=== PATIENT | male | born 1960 | race Caucasian/White ===

== ENCOUNTER → 2020-03-14 09:11 | Outpatient (BNVA) | payer OTHER, SELFPAY | PROVIDERS: Visit Provider Orthopaedic Surgery | DX: M17.0 Bilateral primary osteoarthritis of knee (principal) | CPT/HCPCS: 99213 ==

== ENCOUNTER → 2020-06-06 08:49 | Outpatient (BNVA) | payer OTHER, SELFPAY | PROVIDERS: Visit Provider Orthopaedic Surgery | DX: M17.11 Unilateral primary osteoarthritis, right knee (principal); M17.12 Unilateral primary osteoarthritis, left knee | CPT/HCPCS: 99212 ==

== ENCOUNTER → 2020-07-19 09:02 | Outpatient (BNVA) | payer OTHER, SELFPAY | PROVIDERS: Visit Provider Orthopaedic Surgery ==

== ENCOUNTER 2020-08-25 | Outpatient (REF) | payer OTHER, SELFPAY ==
[2020-08-25 10:43] LABS: Glucose Urine UA NEG (NEG); Leukocyte Esterase Urine NEG (NEG); Nitrite Urine NEG (NEG); Specific Gravity - Urine 1.015 (1.005-1.025); Urine Blood NEG (NEG); Urine Ketones NEG (NEG); Urine Protein NEG (NEG-TRACE)
[2020-08-25 10:44] LABS: Appearance Urine CLEAR; Color Urine YELLOW
[2020-08-25 10:45] LABS: Hemoglobin 15.5 g/dl (14.0-18.0); Mean Corpuscular Hemoglobin 28.4 pg (27.0-33.0); Mean Corpuscular Volume 86.2 fL (80-98); Mean Platelet Volume 9.8 fL (9.4-12.4); Platelet Count 307 X10*3/uL (160-400); Red Blood Count 5.45 X10*6/uL (4.60-5.80); Red Cell Distribution Width 12.9 % (11.0-16.0); White Blood Count 4.8 X10*3/uL (4.8-10.8)
[2020-08-25 10:55] LABS: RBC Urine 0-2 /HPF (0); WBC Urine 0-2 /HPF (0-4)
[2020-08-25 11:07] LABS: Alanine Aminotransferase 41 U/L (0-40); Albumin Level 4.5 g/dL (3.5-5.0); Alkaline Phosphatase 75 U/L (39-117); Anion Gap 10 (12-20); Aspartate Amino Transferase 37 U/L (5-37); Bilirubin Total 1.1 mg/dL (0.0-1.0); Blood Urea Nitrogen 16 mg/dL (9-16); Calcium 9.4 mg/dL (8.4-10.2); Carbon Dioxide 31 mmol/L (22-29); Chloride 103 mmol/L (96-108); Cholesterol 158 mg/dL; Estimated Glomerular Filt Rate > 60; Glucose Fasting 113 mg/dL (60-99); HDL Cholesterol 48 mg/dL; LDL Cholesterol Calculated 98 mg/dl; Potassium 5.2 mmol/L (3.3-5.1); Sodium 139 mmol/L (135-145); Total Protein 7.1 g/dL (6.5-8.0); Triglycerides 61 mg/dL
[2020-08-25 11:28] LABS: Prostate Specific Antigen Scr 0.42 ng/mL (<0.05-4.0)
== END 2020-08-25 00:01 | disposition home or self-care (01) ==
LOC: HO.LAB
PROVIDERS: Visit Provider Internal Medicine
DX: Z01.818 Encounter for other preprocedural examination (principal); I10 Essential (primary) hypertension; Z12.5 Encounter for screening for malignant neoplasm of prostate
CPT/HCPCS: 36415; 80053; 80061; 81001; 84153; 85027; 86850; 86900

== ENCOUNTER 2020-08-27 | Outpatient (REF) | payer OTHER, SELFPAY ==
--- NOTE | 2020-08-27 10:41 | P.CONAN_ITS ---
HPI - Anesthesia Eval Consult details Narrative: 60yo M for Bilateral Knee Replacement Total PCP cleared Pt rescheduled d/t recent dental infection/root canal PMFSH Active Problems Active Problems: All Active Problems (Updated 08/20/20 @ 13:38 by Kathe Edge MD) Primary osteoarthritis of left knee (Acute) Primary osteoarthritis of right knee (Acute) Annual physical exam (Acute) Hypertension (Acute) Normal colonoscopy (Acute) Past Medical History Medical History (Updated 08/27/20 @ 12:27 by Xi Stewart) Annual physical exam Arthritis COVID-19 vaccine administered GERD (gastroesophageal reflux disease) Herniated disc Hx of sciatica Hypertension Murmur Normal colonoscopy Palpitations Primary osteoarthritis of knees, bilateral Family History Family History (Updated 06/26/20 @ 08:59 by Lucina Jalloh RMStephen, BENZENE OPERATOR) Mother No problems noted. Father Stroke Family history of problems with anesthesia: No Surgical History Surgical History (Updated 08/27/20 @ 12:25 by Xi Stewart) H/O arthroscopic knee surgery H/O colonoscopy History of hand surgery History of Problems with Anesthesia: No Social History Social History (Updated 08/27/20 @ 13:26 by Xi Stewart) Smoking Status: Never smoker Current occupational status: employed Current occupation: [employer] - Right Handed Narrative Narrative: No recent illness. 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 Meds Allergies Allergy/AdvReac Type Severity Reaction Status Date / Time lisinopril AdvReac Intermediate cough Verified 08/24/20 08:11 Home Medications Medication Instructions Recorded Confirmed Last Taken Type amlodipine 10 mg tablet 10 mg PO DAILY 03/13/20 08/27/20 Unknown History diclofenac sodium 1 % gel topical 2 g TOPICAL QID PRN 03/13/20 08/27/20 Unknown History kit amoxicillin 875 mg-potassium 1 tab PO Q12H 08/20/20 Unknown History clavulanate 125 mg tablet aspirin 81 mg PO DAILY 08/27/20 08/27/20 08/26/20 History cholecalciferol (vitamin D3) 25 mcg PO BID 08/27/20 08/27/20 Unknown History [Vitamin D3] famotidine 20 mg PO BEDTIME 08/27/20 08/27/20 Unknown History multivitamin 1 tab PO DAILY 08/27/20 08/27/20 Unknown History Exam Exam Date and Time: August 27, 2020 1041 Pertinent Lab Results Pertinent Lab Results: Laboratory Tests 08/25/20 08/25/20 08/25/20 10:12 10:15 10:15 WBC 4.8 RBC 5.45 Hgb 15.5 Hct 47.0 MCV 86.2 MCH 28.4 MCHC 33.0 RDW 12.9 Plt Count 307 MPV 9.8 Absolute Nucleated RBC 0.000 Nucleated RBC % (auto) 0.0 Sodium 139 Potassium 5.2 H Chloride 103 Carbon Dioxide 31 H Anion Gap 10 L BUN 16 Creatinine 1.08 Estim Creat Clear Calc TNP Estimated GFR > 60 Fasting Glucose 113 H Calcium 9.4 Total Bilirubin 1.1 H AST 37 ALT 41 H Alkaline Phosphatase 75 Total Protein 7.1 Albumin 4.5 Triglycerides 61 Cholesterol 158 LDL Cholesterol, Calc 98 HDL Cholesterol 48 PSA Screen 0.42 Urine Color YELLOW Urine Appearance CLEAR Urine pH 7.0 Ur Specific [place] 1.015 Urine Protein NEG Urine Glucose (UA) NEG Urine Ketones NEG Urine Blood NEG Urine Nitrite NEG Ur Leukocyte Esterase NEG Urine RBC 0-2 Urine WBC 0-2 Ur Squamous Epith Cells NONE Urine Bacteria NONE Blood Type Antibody Screen 08/25/20 10:15 WBC RBC Hgb Hct MCV MCH MCHC RDW Plt Count MPV Absolute Nucleated RBC Nucleated RBC % (auto) Sodium Potassium Chloride Carbon Dioxide Anion Gap BUN Creatinine Estim Creat Clear Calc Estimated GFR Fasting Glucose Calcium Total Bilirubin AST ALT Alkaline Phosphatase Total Protein Albumin Triglycerides Cholesterol LDL Cholesterol, Calc HDL Cholesterol PSA Screen Urine Color Urine Appearance Urine pH Ur Specific [place] Urine Protein Urine Glucose (UA) Urine Ketones Urine Blood Urine Nitrite Ur Leukocyte Esterase Urine RBC Urine WBC Ur Squamous Epith Cells Urine Bacteria Blood Type O Positive Antibody Screen NEGATIVE Narrative Narrative: EKG 08/2020 Echo 03/2018 Normal biV function No signif valve pathology No pericard effusion Airway Mallampati Class: III TM Dist: >3cm Neck ROM: Full Partial: Upper and Lower Loose/Missing/Broken Teeth: Yes (Multiple broken, all stable) Heart: RRR Lungs: CTAB Assessment and Plan Assessment Anesthesia Assessment: Anesthesia Plan Discussed and PAT Visit
[2020-08-27 12:15] VITALS: BP 125/86; PULSE 110; RESP 18; O2SAT 97; BMI 31.6
--- NOTE | 2020-08-27 13:12 | ECG_ITS ---
Test Reason : PREOP Blood Pressure : / mmHG Vent. Rate : 081 BPM Atrial Rate : 081 BPM P-R Int : 192 ms QRS Dur : 086 ms QT Int : 378 ms P-R-T Axes : 048 028 044 degrees QTc Int : 439 ms Normal sinus rhythm Normal ECG No previous ECGs available Referred By: Corby Currie Electronically Signed By:KELLIE ANGELES MD
[2020-08-27 15:31] LABS: MRSA Nasal PCR NEGATIVE (Negative); SA Nasal PCR NEGATIVE (Negative)
== END 2020-08-27 00:01 | disposition home or self-care (01) ==
LOC: HO.PAT
PROVIDERS: Physician Assistant; PCP Internal Medicine; Visit Provider Orthopaedic Surgery
DX: Z01.818 Encounter for other preprocedural examination (principal); M17.0 Bilateral primary osteoarthritis of knee
CPT/HCPCS: 36415; 80053; 80061; 81001; 84153; 85027; 86850; 86900; 87640; 87641; 93005

== ENCOUNTER → 2020-10-31 13:49 | Outpatient (BNVA) | payer OTHER, SELFPAY | PROVIDERS: PCP Internal Medicine; Visit Provider Physician Assistant | DX: M17.0 Bilateral primary osteoarthritis of knee (principal) | CPT/HCPCS: 99212 ==

== ENCOUNTER → 2020-11-05 06:22 | Day surgery (SDC) | payer OTHER, SELFPAY ==
--- NOTE | 2020-10-31 14:59 | P.CONAN_ITS ---
HPI - Anesthesia Eval Consult details Narrative: 60yo M for Bilateral Knee Replacement Total PCP cleared Seen in PAT 08/2020, but pt rescheduled d/t dental infection/root canal 11/05/20 - Cx'd d/t wound on leg. PMFSH Active Problems Active Problems: All Active Problems (Updated 08/27/20 @ 12:27 by Xi Stewart) Primary osteoarthritis of left knee (Acute) Primary osteoarthritis of right knee (Acute) Annual physical exam (Acute) Hypertension (Acute) Normal colonoscopy (Acute) Past Medical History Medical History Annual physical exam Arthritis COVID-19 vaccine administered GERD (gastroesophageal reflux disease) Herniated disc Hx of sciatica Hypertension Murmur Normal colonoscopy Palpitations Primary osteoarthritis of knees, bilateral Family History Family History Mother No problems noted. Father Stroke Family history of problems with anesthesia: No Surgical History Surgical History H/O arthroscopic knee surgery H/O colonoscopy History of hand surgery History of Problems with Anesthesia: No Social History Social History Are you a primary physician assistant primary care to a significant other at home: No Do you presently have visiting nurse or other home services: No Patient Tobacco Use Status: Never used Tobacco Second Hand Smoke Exposure: No Use of substances other than those prescribed or required for medical reasons: No Are you DNR?: No Advance Directives: No Advance Directives Information Provided: No Advance Directives on File: No Nutrition Risks: No Nutritional Risk Poor oral hygiene: No Current occupational status: employed Current occupation: [employer] - Right Handed Meds Allergies Allergy/AdvReac Type Severity Reaction Status Date / Time lisinopril AdvReac Intermediate cough Verified 10/31/20 14:01 Home Medications Medication Instructions Recorded Confirmed Last Taken Type amlodipine 10 mg tablet 10 mg PO DAILY 03/13/20 08/27/20 11/05/20 History diclofenac sodium 1 % gel topical 2 g TOPICAL QID PRN 03/13/20 08/27/20 Unknown History kit amoxicillin 875 mg-potassium 1 tab PO Q12H 03/29/21 Unknown History clavulanate 125 mg tablet aspirin 81 mg PO DAILY 08/27/20 08/27/20 08/26/20 History cholecalciferol (vitamin D3) 25 mcg PO BID 08/27/20 08/27/20 Unknown History [Vitamin D3] famotidine 20 mg PO BEDTIME 08/27/20 08/27/20 Unknown History multivitamin 1 tab PO DAILY 08/27/20 08/27/20 11/05/20 History amoxicillin 500 mg capsule 1,000 mg PO BID 10/31/20 Unknown History ibuprofen 600 mg tablet 600 mg PO TID 10/31/20 Unknown History Exam Exam Date and Time: October 31, 2020 1459 Narrative Narrative: EKG 08/2020 Vent. Rate : 081 BPM Atrial Rate : 081 BPM P-R Int : 192 ms QRS Dur : 086 ms QT Int : 378 ms P-R-T Axes : 048 028 044 degrees QTc Int : 439 ms Normal sinus rhythm Normal ECG No previous ECGs available Echo 03/2018 Normal biV function No signif valve pathology No pericard effusion Assessment and Plan Assessment Anesthesia Assessment: Chart Reviewed
[2020-11-05 06:30] VITALS: BMI 31.6
[2020-11-05 06:43] VITALS: BP 147/79; PULSE 93; RESP 18; TEMP 36.9; O2SAT 97
[2020-11-05 06:53] LABS: COVID-19 Test Negative (Negative); IDNOW Serial# 9DD0AD1C
--- NOTE | 2020-11-05 07:49 | PC.NURSE ---
Pt with open abrasion to right lower [place]. Picture sent to Dr. Gallo via [employer]. Dr Gallo at bedside to assess finding. Pt to be cancelled for surgery today and rescheduled in a couple weeks when abrasion is healed.
== END ==
LOC: HO.SSS 07:05 → HO.SSSA 10:45 → HO.SSS 05-05 00:21
PROVIDERS: Physician Assistant; PCP Internal Medicine; Visit Provider Orthopaedic Surgery
DX: M17.0 Bilateral primary osteoarthritis of knee (principal); Z53.09 Procedure and treatment not carried out because of other contraindication; Z20.822 Contact with and (suspected) exposure to COVID-19; I10 Essential (primary) hypertension
CPT/HCPCS: 36415; 86850; 86900; 86901; 87635; J0690

== ENCOUNTER 2020-11-19 11:02 | Inpatient (IN) | payer OTHER, SELFPAY ==
[2020-11-16 11:14] LABS: MANUAL DIFF FLAG NO
[2020-11-16 11:29] LABS: Basophils Absolute Auto 0.1 X10*3/uL (0.0-0.2); Basophils Percent Auto 0.8 % (0-2); Eosinophils Absolute Auto 0.2 X10*3/uL (0.0-0.4); Eosinophils Percent Auto 2.9 % (0-4); Hematocrit 46.1 % (42-52); Hemoglobin 15.1 g/dl (14.0-18.0); Imm Gran Abs Auto 0.01 X10*3/uL (0.00-0.03); Imm Gran Pct Auto 0.2 % (0.0-0.4); Lymphocytes Absolute Auto 1.6 X10*3/uL (1.2-4.9); Lymphocytes Percent Auto 25.7 % (20-40); Mean Corpuscular HGB Conc 32.8 g/dl (31.0-36.0); Mean Corpuscular Hemoglobin 28.7 pg (27.0-33.0); Mean Corpuscular Volume 87.5 fL (80-98); Mean Platelet Volume 9.8 fL (9.4-12.4); Monocytes Absolute Auto 0.5 X10*3/uL (0.1-1.2); Monocytes Percent Auto 8.5 % (2-11); Neutrophils Absolute Auto 3.9 X10*3/uL (2.0-8.3); Neutrophils Percent Auto 61.9 % (45-73); Platelet Count 316 X10*3/uL (160-400); Red Blood Count 5.27 X10*6/uL (4.60-5.80); Red Cell Distribution Width 12.7 % (11.0-16.0); White Blood Count 6.2 X10*3/uL (4.8-10.8)
[2020-11-16 12:00] LABS: Anion Gap 12 (12-20); Blood Urea Nitrogen 12 mg/dL (9-16); Calcium 9.9 mg/dL (8.4-10.2); Carbon Dioxide 28 mmol/L (22-29); Chloride 103 mmol/L (96-108); Estimated Glomerular Filt Rate > 60; Glucose Random 102 mg/dL (60-115); Sodium 138 mmol/L (135-145)
[2020-11-19] VITALS (24 sets, daily range): BP systolic 102–140; BP diastolic 52–80; PULSE 78–95; RESP 10–18; TEMP 36.1–36.7; O2SAT 93–99; BMI 30.4
--- NOTE | ~2020-11-19 | XR_ITS ---
EXAMINATION: BILATERAL KNEE X-RAY CLINICAL INFORMATION: Postop COMPARISON: Previous x-ray June 2019 TECHNIQUE: 2 views of each knee FINDINGS: There are new bilateral 3 component total knee replacements. No fracture or dislocation is seen. There are postoperative changes to the soft tissues. XR/XR knee RT 2V IMPRESSION: Satisfactory appearance of bilateral knee replacements.
--- NOTE | ~2020-11-19 | XR_ITS ---
EXAMINATION: BILATERAL KNEE X-RAY CLINICAL INFORMATION: Postop COMPARISON: Previous x-ray June 2019 TECHNIQUE: 2 views of each knee FINDINGS: There are new bilateral 3 component total knee replacements. No fracture or dislocation is seen. There are postoperative changes to the soft tissues. XR/XR knee LT 2V IMPRESSION: Satisfactory appearance of bilateral knee replacements.
[2020-11-19 06:45] LABS: COVID-19 Test Negative (Negative)
[2020-11-19] MEDS: Gabapentin 600 MG TABLET PO (07:18)
--- NOTE | 2020-11-19 07:20 | HO.ANESPROP2 ---
HPI - Anesthesia Eval Consult details Narrative: 60 year old make patient for bilateral TKR. Procedure cancelled 11/06/20 secondary to abrasion on lower extremity. PMFSH Active Problems Active Problems: All Active Problems (Updated 08/27/20 @ 12:27 by Xi Stewart) Primary osteoarthritis of left knee (Acute) Primary osteoarthritis of right knee (Acute) Annual physical exam (Acute) Hypertension (Acute) Normal colonoscopy (Acute) Past Medical History Medical History Annual physical exam Arthritis COVID-19 vaccine administered GERD (gastroesophageal reflux disease) Herniated disc Hx of sciatica Hypertension Murmur Normal colonoscopy Palpitations Primary osteoarthritis of knees, bilateral Family History Family History Mother No problems noted. Father Stroke Family history of problems with anesthesia: No Surgical History Surgical History H/O arthroscopic knee surgery H/O colonoscopy History of hand surgery History of Problems with Anesthesia: No Social History Social History Are you a primary child care specialist to a significant other at home: No Do you presently have visiting nurse or other home services: No Patient Tobacco Use Status: Never used Tobacco Second Hand Smoke Exposure: No Use of substances other than those prescribed or required for medical reasons: No Are you DNR?: No Advance Directives: No Current occupational status: employed Current occupation: [employer] - Right [employer]ed Meds Allergies Allergy/AdvReac Type Severity Reaction Status Date / Time lisinopril AdvReac Intermediate cough Verified 11/19/20 06:14 Active Medications: Current Medications Generic Name Dose Route Start Last Admin Trade Name Freq PRN Reason Stop Dose Admin Gabapentin 600 mg 11/19/20 07:20 Gabapentin 600 Mg Tablet PO 11/19/20 07:21 PREOP ONE Acetaminophen 1,000 mg in 100 mls @ 400 mls/hr 11/19/20 07:19 Ofirmev IV 11/19/20 07:33 PREOP ONE Oxycodone HCl 10 mg 11/19/20 07:20 Oxycodone Hcl Er 10 Mg Tab.Er.12h PO 11/19/20 07:21 PREOP ONE Home Medications Medication Instructions Recorded Confirmed Last Taken Type amlodipine 10 mg tablet 10 mg PO DAILY 03/13/20 08/27/20 11/19/20 05:30 History diclofenac sodium 1 % gel topical 2 g TOPICAL QID PRN 03/13/20 08/27/20 Unknown History kit amoxicillin 875 mg-potassium 1 tab PO Q12H 08/20/20 Unknown History clavulanate 125 mg tablet aspirin 81 mg PO DAILY 08/27/20 08/27/20 11/12/20 History cholecalciferol (vitamin D3) 25 mcg PO BID 08/27/20 08/27/20 Unknown History [Vitamin D3] famotidine 20 mg PO BEDTIME 08/27/20 08/27/20 Unknown History multivitamin 1 tab PO DAILY 08/27/20 08/27/20 11/05/20 History amoxicillin 500 mg capsule 1,000 mg PO BID 10/31/20 Unknown History ibuprofen 600 mg tablet 600 mg PO TID 10/31/20 Unknown History Exam Exam Date and Time: November 19, 2020 0720 Height,Weight and Vital Signs: Height 6 ft 3 in Weight 110.223 kg Last Vital Signs Temp 98.0 F 11/19/20 06:39 Pulse 94 11/19/20 06:39 Resp 16 11/19/20 06:39 BP 140/76 H 11/19/20 06:39 Pulse Ox 96 11/19/20 06:39 Pertinent Lab Results Pertinent Lab Results: Laboratory Tests 11/16/20 11/16/20 11/16/20 10:37 10:37 10:37 WBC 6.2 RBC 5.27 Hgb 15.1 Hct 46.1 MCV 87.5 MCH 28.7 MCHC 32.8 RDW 12.7 Plt Count 316 MPV 9.8 Immature Gran % (Auto) 0.2 Neut % (Auto) 61.9 Lymph % (Auto) 25.7 [place] % (Auto) 8.5 Eos % (Auto) 2.9 Baso % (Auto) 0.8 Lymph # (Auto) 1.6 [place] # (Auto) 0.5 Eos # (Auto) 0.2 Baso # (Auto) 0.1 Abs Immat Gran (auto) 0.01 Absolute Neuts (auto) 3.9 Absolute Nucleated RBC 0.000 Nucleated RBC % (auto) 0.0 Sodium 138 Potassium 5.0 Chloride 103 Carbon Dioxide 28 Anion Gap 12 BUN 12 Creatinine 0.93 Estim Creat Clear Calc TNP Estimated GFR > 60 Random Glucose 102 Calcium 9.9 COVID-19 (RATNA) COVID-19 Clin Com Blood Type O Positive Antibody Screen NEGATIVE 11/19/20 06:16 WBC RBC Hgb Hct MCV MCH MCHC RDW Plt Count MPV Immature Gran % (Auto) Neut % (Auto) Lymph % (Auto) [place] % (Auto) Eos % (Auto) Baso % (Auto) Lymph # (Auto) [place] # (Auto) Eos # (Auto) Baso # (Auto) Abs Immat Gran (auto) Absolute Neuts (auto) Absolute Nucleated RBC Nucleated RBC % (auto) Sodium Potassium Chloride Carbon Dioxide Anion Gap BUN Creatinine Estim Creat Clear Calc Estimated GFR Random Glucose Calcium COVID-19 (RATNA) Negative COVID-19 Clin Com See Note Blood Type Antibody Screen Airway Mallampati Class: II TM Dist: >3cm Neck ROM: Full Loose/Missing/Broken Teeth: Yes (Many missing, some broken) Heart: RRR Lungs: CTAB Assessment and Plan Assessment Anesthesia Assessment: Anesthesia Plan Discussed and Chart Reviewed Final Anesthetic Review NPO: Yes ASA Class: II Final Preanesthetic Review: No Changes in Pt Med Stat, Meds/Allgs Chart Reviewed, Consent Obtained/Reviewed and Anes Risks/Benef Reviewed Patient Risk: Low Procedure Risk: Intermediate Assessment/Block/Sedation in SS: Assess/Block/Sedation-SS Anesthetic Plan Anesthetic Plan: GA and Regional Block (Bilateral adductor canal blocks) Disposition: Inp. Admit - Standard Bed
[2020-11-19] MEDS: oxyCODONE HCl ER 10 MG TAB.ER.12H PO (07:22)
[2020-11-19] MEDS: Lactated Ringers 1,000 ML 100 ML IVCONT ×3 (07:23→23:16)
--- NOTE | 2020-11-19 07:39 | MHC.SHP ---
Pre-Procedural Eval Section A Date of Service: 11/19/20 The patient is an INPATIENT: No Changes since office visit: No Cold of Flu in the past 2 weeks, No New Medical Problems, No Changes in Medication and No Patient answered all questions The History & Physical has been completed within 30 days and I have reviewed it.: Yes Section B Chief Complaint: Right total Knee arthroplasty Allergies: Allergies Allergy/AdvReac Type Severity Reaction Status Date / Time lisinopril AdvReac Intermediate cough Verified 11/19/20 06:14 Plan I have reviewed the history and physical and performed a pertinent physical examination on my patient. No changes have occurred unless specified.
[2020-11-19] MEDS: fentaNYL citrate/PF 100 MCG/2 ML VIAL 25 MCG IVPUSH ×4 (11:37→12:00)
[2020-11-19] MEDS: oxyCODONE HCl Immed Release 5 MG TABLET 10 MG PO ×4 (11:40→21:36)
--- NOTE | 2020-11-19 11:56 | W.PM.OPN ---
Operative Note Operative Note Date of Service: 11/19/20 Narrative: SURGEON: Dr Ave Hernandez) Cleo DIXON SHUTTLE FITTING SUPERVISOR: Mary Farias PAC PREOP DIAGNOSIS: Bilateral osteoarthritis knees POSTOP DIAGNOSIS: same OPERATIVE PROCEDURE: bilateral Total knee arthroplasty - BRIANNA NEXGEN CRFlex the size 8 left and right femoral component 8 x 10 mm monoblock tibial components bilaterally, 35 mm monoblock patellar components bilaterally CLINICAL NOTE: This individual comes in today in regards to their knees. Has osteoarthritis. Has failed non operative management. Therefore after explaining the risks benefits and alternatives and answering all the questions it was mutually agreed upon care following procedure OPERATIVE DETAILS With of regional and general anesthetic the patient was placed supine on the operating table. Pneumatic tourniquet cuff was placed around the upper thigh of both legsand inflated to 300 mm of mercury at the beginning of the procedure 1 we did that leg.. Both legs were then prepped and draped in standard fashion with the leg free. Surgical time-out was then performed. The patient was identified. Procedure confirmed. Site confirmed. Medical and allergy history reviewed. Preoperative antibiotics were given. Standard DVT prophylaxis in place. this was done sterilely and alternated to the non operative leg during the case. Tranexamic acid was given as well. All other items were discussed and agreed upon. Identical procedures were done on both sides. The left was done 1st and then the right.Standard small midline incision was made. Was taken down through the subcutaneous tissues. Hemostasis achieved along the way using electrocautery. This brought us to the extensor mechanism where a medial parapatellar arthrotomy in a subvastus technique was performed. The patella was retracted into the lateral gutter. The soft tissues were elevated from the anterior aspect of the femur. At the level of the tibia the soft tissue elevated medially excising a portion of the meniscus as well as protecting the medial-sided soft tissues. Similarly on the lateral side a portion of the fat pad, portion of the meniscus were excised. The lateral-sided soft tissues were elevated protecting them as well. The ACL was resected. We turned our attention then to the femur. Standard intermedullary hole was established. The cutting guide was set for 5 degrees of valgus with a standard cut. It was held in place with pins and the surface resected flat. The sizing guide was then used. The femur was sized to a G. The 3 degree external rotation pins were set. The all in 1 cutting guide for this size was placed the pins and centered over the distal cut. Following this the anterior and anterior chamfer cuts, the posterior and posterior chamfer cuts, the patellar recess cuts, as well as the lug holes were made. The guide was removed. The bony fragments removed and we turned our attention to the tibia. The remainder of the medial and lateral menisci were excised. The extramedullary guide was then used in standard fashion referencing the tibial tubercle, the subcutaneous border of the tibia, and the middle of the ankle. The slope was then set. The cut was referenced from the more worn size for a minimal cut. The surface was then resected. The bony segment removed. The tibia was then trialed to a size 8. It was aligned as the extra medullary guide had been. A 10 mm trial insert was put into place. The femoral trial was also applied with good fit. The alignment of the leg was excellent. The knee was then placed through a range of motion which demonstrated full extension full flexion stable medially and laterally at 0, 30, 60, and 90 degrees of flexion. Patella tracked centrally. Turning our attention to the patella. The soft tissues were elevated circumferentially. The surface was resected flat. It sized to a 35. A local drilled in standard The trial component was put into place with excellent fit. It tracked nicely through flexion extension. Therefore the trial sizes were appropriate and therefore the permanent components were selected and brought up onto the table. The trial components were then all removed after the peg holes for the tibia were made. The tourniquet was then let down with total tourniquet time of 59 minutes on the left and 60 minutes on the right. The area of the lateral geniculate artery was identified and cauterized. Any excessive bleeding points were also cauterized. The knee was then thoroughly irrigated. The permanent components were brought up onto the table. The tibia followed by the femur followed by the patella were all Press-Fit into place. The knee was placed through range of motion. It had full flexion and extension. He was stable medial laterally in all positions. Patella tracked centrally. And therefore we proceeded to closure. Wound was thoroughly irrigated. The extensor mechanism was closed with #2 Quill suture. The skin was approximated with 2-0 Polysorb suture. The skin was closed with chandler. Sterile dressing was then applied. patient's anesthesia was then reversed.The patient was then transferred supine to the room bed and taken to the recovery room in good condition. Intraoperatively a 2nd unit a transemic acid was given at the time of closure. There was approximately 125 cc a blood loss. No intraop transfusions or complications. .
[2020-11-19] MEDS: HYDROmorphone HCl 0.5 MG/0.5 ML SYRINGE 0.25 MG IVPUSH ×5 (12:10→12:51)
--- NOTE | 2020-11-19 14:02 | PHA.MEDREC ---
Pharmacy Consult ? Medication Reconciliation Pharmacy has completed the medication reconciliation. There are no remarkable issue require provider's attention. Emeli Sosa, RadhaD
--- NOTE | 2020-11-19 14:05 | PM.IMCN ---
History of Present Illness Data of Consult Service Date: 11/19/20 Primary Care Provider: Kathe Edge MD HPI Reason for consult: htn 60M with pmh of OA and HTN presented for elective bilateral TKA. medical team asked to follow postoperatively. So far patient's pain is controlled, denies chest pain, sob, fever, chills. patient is on amlodipnie and metoprolol for HTN. generally well controlled. Review of Systems Cardiovascular: Cardiovascular: Reports no additional cardiovascular complaints Respiratory: Respiratory: Reports no additional respiratory complaints Gastrointestinal: Gastrointestinal: Reports no additional gastrointestinal complaints COUNTS INCLUDE 234 BEDS AT THE [facility] Medical History Annual physical exam Arthritis COVID-19 vaccine administered GERD (gastroesophageal reflux disease) Herniated disc Hx of sciatica Hypertension Murmur Normal colonoscopy Palpitations Primary osteoarthritis of knees, bilateral Family History Mother No problems noted. Father Stroke Surgical History H/O arthroscopic knee surgery H/O colonoscopy History of hand surgery Social History Are you a primary respiratory care technician to a significant other at home: No Do you presently have visiting nurse or other home services: No Patient Tobacco Use Status: Never used Tobacco Second Hand Smoke Exposure: No Use of substances other than those prescribed or required for medical reasons: No Are you DNR?: No Advance Directives: No Current occupational status: employed Current occupation: [employer] - Right Handed Meds Allergies Allergy/AdvReac Type Severity Reaction Status Date / Time lisinopril AdvReac Intermediate cough Verified 11/19/20 06:14 Active Medications: Current Medications Generic Name Dose Route Start Last Admin Trade Name Freq PRN Reason Stop Dose Admin Acetaminophen 650 mg 11/19/20 13:32 Acetaminophen 325 Mg Tablet PO Q6H KASSIDY Aspirin 325 mg 11/20/20 10:00 Aspirin 325 Mg Tablet PO BID KASSIDY Lactated Ringer's 1,000 mls @ 100 mls/hr 11/19/20 07:30 11/19/20 13:20 Lr IVCONT Infused .Q10H KASSIDY Infusion Cefazolin Sodium/Dextrose 2 gm in 50 mls @ 100 mls/hr 11/19/20 14:00 Ancef IV 11/19/20 14:29 ONCE@1400 ONE Ketorolac Tromethamine 15 mg 11/19/20 13:32 Ketorolac Tromethamine 15 Mg/Ml Vial IVPUSH Q6H [facility] Morphine Sulfate 3 mg 11/19/20 13:32 Morphine Sulfate 4 Mg/Ml Cartridge IVPUSH Q2H PRN Pain, Severe (Pain Scale 7-10) Naloxone HCl 0.2 mg 11/19/20 13:32 Naloxone Hcl 0.4 Mg/Ml Vial IVPUSH Q2M PRN Excessive sedation or RR < 8 Ondansetron HCl 4 mg 11/19/20 13:32 Ondansetron Hcl 4 Mg/2 Ml Vial IVPUSH Q8H PRN Nausea and Vomiting Oxycodone HCl 10 mg 11/19/20 13:32 Oxycodone Hcl Immed Release 5 Mg Tablet PO Q4H [facility] Pharmacy Consult 1 each 11/19/20 13:40 Consult Rx Perform Med Rec MISCELLANE ONCE PRN Consult order Sodium Chloride 3 ml 11/19/20 16:00 0.9 % Sodium Chloride Flush 3 Ml Syringe IVFLUSH QSHIFT [facility] Home Medications Medication Instructions Recorded Confirmed Last Taken Type amlodipine 10 mg tablet 10 mg PO DAILY 03/13/20 11/19/20 11/19/20 History cholecalciferol (vitamin D3) 25 mcg PO DAILY 08/27/20 11/19/20 11/19/20 History [Vitamin D3] famotidine 20 mg PO BEDTIME 08/27/20 11/19/20 11/18/20 History multivitamin 1 tab PO DAILY 08/27/20 11/19/20 11/19/20 History aspirin 81 mg PO DAILY 11/19/20 11/19/20 11/19/20 History Physical Exam Vital Signs and Narrative: Vital Signs: Last Vital Signs Temp 97.3 F 11/19/20 13:32 Pulse 94 11/19/20 13:32 Resp 18 11/19/20 13:32 BP 140/72 H 11/19/20 13:32 Pulse Ox 97 11/19/20 13:32 Body Mass Index 30.4 General: AO X 3, no acute distress Resp: CTA bilateral CVS: S1,S2,RRR GI: soft, non tender, non distended Neuro: motor grossly intact Psych: appropriate affect Results Labs CBC and Chem 7: 11/16/20 10:37 11/16/20 10:37 Labs: Laboratory Results - last 24 hr 11/19/20 06:16 COVID-19 ([facility]ATNA) Negative COVID-19 Clin Com See Note Assessment and Plan (1) Hypertension: Status: Acute 60M presented for elective bilateral TKA s/p bilateral TKA management per ortho team HTN continue metoprolol restart amlodipine if BP persistently elevated GERD pepcid
[2020-11-19] MEDS: Ketorolac Tromethamine 15 MG/ML VIAL IVPUSH ×2 (14:45→19:36)
[2020-11-19] MEDS: Acetaminophen 325 MG TABLET 650 MG PO ×2 (14:46→19:34)
[2020-11-19] MEDS: ceFAZolin Sodium/Dextrose,Iso 2 GM/50 ML PIGGYBACK IV (14:47)
[2020-11-19] MEDS: Morphine Sulfate 4 MG/ML CARTRIDGE 3 MG IVPUSH (20:45)
[2020-11-19] MEDS: Famotidine 20 MG TABLET PO (21:36)
[2020-11-20] VITALS (10 sets, daily range): BP systolic 104–145; BP diastolic 55–70; PULSE 72–104; RESP 16–19; TEMP 36.4–36.6; O2SAT 97–99
[2020-11-20] MEDS: Ketorolac Tromethamine 15 MG/ML VIAL IVPUSH ×4 (01:38→20:18)
[2020-11-20] MEDS: Morphine Sulfate 4 MG/ML CARTRIDGE 3 MG IVPUSH ×3 (01:38→12:17)
[2020-11-20 06:40] LABS: Hematocrit 34.3 % (42-52); Hemoglobin 11.1 g/dl (14.0-18.0); Mean Corpuscular HGB Conc 32.4 g/dl (31.0-36.0); Mean Corpuscular Hemoglobin 28.7 pg (27.0-33.0); Mean Corpuscular Volume 88.6 fL (80-98); Platelet Count 235 X10*3/uL (160-400); Red Blood Count 3.87 X10*6/uL (4.60-5.80); Red Cell Distribution Width 12.8 % (11.0-16.0); White Blood Count 13.2 X10*3/uL (4.8-10.8)
[2020-11-20 06:49] LABS: Anion Gap 12 (12-20); Blood Urea Nitrogen 12 mg/dL (9-16); Calcium 8.4 mg/dL (8.4-10.2); Carbon Dioxide 23 mmol/L (22-29); Chloride 105 mmol/L (96-108); Creatinine Clr Calc Pharmacy 109.9; Estimated Glomerular Filt Rate > 60; Glucose Fasting 132 mg/dL (60-99); Potassium 4.6 mmol/L (3.3-5.1); Sodium 135 mmol/L (135-145)
[2020-11-20] MEDS: oxyCODONE HCl Immed Release 5 MG TABLET 10 MG PO ×5 (07:32→22:33)
[2020-11-20] MEDS: Acetaminophen 325 MG TABLET 650 MG PO ×3 (07:33→20:17)
[2020-11-20] MEDS: Multivitamin TABLET 1 TAB PO (07:34)
[2020-11-20] MEDS: Aspirin 325 MG TABLET PO ×2 (07:34→20:17)
[2020-11-20] MEDS: Metoprolol Succinate ER 25 MG TAB.ER.24H PO (07:34)
[2020-11-20 08:16] LABS: Hematocrit 35.7 % (42-52); Hemoglobin 11.6 g/dl (14.0-18.0)
--- NOTE | 2020-11-20 08:34 | PM.PNORT ---
Subjective Subjective Date of Service: 11/20/20 Interval history: POD1 s/p bilateral TKA. Pain is well managed. Denies SOB, chest pain, abd pain. Patient is resting comfortably in bed. Physical Exam Vital Signs: Vital Signs: Last Vital Signs Temp 97.6 F 11/20/20 07:21 Pulse 104 H 11/20/20 08:13 Resp 19 11/20/20 07:21 BP 129/70 11/20/20 08:13 Pulse Ox 98 11/20/20 07:21 Body Mass Index 30.4 Const: General: cooperative, healthy appearing and no acute distress Resp: Effort & Inspection: normal respiratory effort and able to speak in complete sentences Cardio: Rate: regular rate Peripheral pulses: Peripheral pulses 2+ throughout GI: Palpation (GI): Soft to palpation Skin: Lesions: no lesions Rashes: no rashes Extrem: Other: Bilat knees no ecchymosis, redness, or drainage. Aquacell dressings are intact. block is still in effect. Progress Note: A&P Assessment and plan (1) Status post total knee replacement, bilateral: Status: Acute Assessment and Plan: Continue pain mgmnt Begin ASA for dvt ppx begin PT for bilat TKA Dispo planning-Pending PT eval, pain mgmnt Fall Risk Details Current Medications: Current Medications Generic Name Dose Route Start Last Admin Trade Name Tinoq PRN Reason Stop Dose Admin Acetaminophen 650 mg 11/20/20 02:00 11/20/20 07:33 Acetaminophen 325 Mg Tablet PO 650 mg Q6H KASSIDY Administration Aspirin 325 mg 11/20/20 09:00 11/20/20 07:34 Aspirin 325 Mg Tablet PO 325 mg BID KASSIDY Administration Famotidine 20 mg 11/19/20 21:00 11/19/20 21:36 Famotidine 20 Mg Tablet PO 20 mg BEDTIME KASSIDY Administration Ketorolac Tromethamine 15 mg 11/20/20 02:00 11/20/20 07:34 Ketorolac Tromethamine 15 Mg/Ml Vial IVPUSH 15 mg Q6H KASSIDY Administration Metoprolol Succinate 25 mg 11/20/20 09:00 11/20/20 07:34 Metoprolol Succinate Er 25 Mg Tab.Er.24h PO 25 mg DAILY KASSIDY Administration Protocol Morphine Sulfate 3 mg 11/20/20 01:12 11/20/20 06:13 Morphine Sulfate 4 Mg/Ml Cartridge IVPUSH 3 mg Q2H PRN Administration Pain, Severe (Pain Scale 7-10) Multivitamins/Vitamin C 1 tab 11/20/20 09:00 11/20/20 07:34 Multivitamin Tablet PO 1 tab DAILY KASSIDY Administration Naloxone HCl 0.2 mg 11/20/20 01:12 Naloxone Hcl 0.4 Mg/Ml Vial IVPUSH Q2M PRN Excessive sedation or RR < 8 Ondansetron HCl 4 mg 11/20/20 01:11 Ondansetron Hcl 4 Mg/2 Ml Vial IVPUSH Q8H PRN Nausea and Vomiting Oxycodone HCl 10 mg 11/20/20 02:00 11/20/20 07:32 Oxycodone Hcl Immed Release 5 Mg Tablet PO 10 mg Q4H KASSIDY Administration Pharmacy Consult 1 each 11/19/20 13:40 Consult Rx Perform Med Rec MISCELLANE ONCE PRN Consult order Sodium Chloride 3 ml 11/20/20 08:00 11/20/20 07:28 0.9 % Sodium Chloride Flush 3 Ml Syringe IVFLUSH Not Given QSHIFT [facility] Time Spent With Patient Time: Total time spent is greater than 50% in coordination of care (as documented) at patient's floor/unit and/or counseling patient: Time with patient: less than 15 minutes Procedures Date of Service Date of Service: 11/20/20 Quality Stroke Does the patient have a stroke diagnosis?: No VTE Prior VTE?: No VTE Risk Level:: Surgical - high VTE Device Contraindication: N/A - Device Ordered VTE Drug Contraindication: N/A - Med Ordered
--- NOTE | 2020-11-20 08:58 | MHC.CM.PN ---
pt lives c his and children in his home. he reports that at baseline he was independent in his care. his family can help him when he returns home which is the dc plan. they will also help him c transportation home. he has requested [facility] for home PT for which a ref. has been made. pt will need an rx for a walker at al as well. dc plan is home c [facility] for home PT . cm to cont. to follow.
--- NOTE | 2020-11-20 09:03 | HO.PM.IMPN ---
Subjective Subjective Date of Service: 11/20/20 Interval History: feeling well Cardiovascular Cardiovascular: Reports no additional cardiovascular complaints Respiratory Respiratory: Reports no additional respiratory complaints Physical Exam Vital Signs: Vital Signs: Last Vital Signs Temp 97.6 F 11/20/20 07:21 Pulse 104 H 11/20/20 08:13 Resp 19 11/20/20 07:21 BP 129/70 11/20/20 08:13 Pulse Ox 98 11/20/20 07:21 Body Mass Index 30.4 General: AO X 3, no acute distress Resp: CTA bilateral CVS: S1,S2,RRR GI: soft, non tender, non distended Neuro: motor grossly intact Psych: appropriate affect Objective Data Current Medications Generic Name Dose Route Start Last Admin Trade Name Freq PRN Reason Stop Dose Admin Acetaminophen 650 mg 11/20/20 02:00 11/20/20 07:33 Acetaminophen 325 Mg Tablet PO 650 mg Q6H KASSIDY Administration Aspirin 325 mg 11/20/20 09:00 11/20/20 07:34 Aspirin 325 Mg Tablet PO 325 mg BID KASSIDY Administration Aspirin 325 mg 11/20/20 11:00 Aspirin 325 Mg Tablet PO BID KASSIDY Famotidine 20 mg 11/19/20 21:00 11/19/20 21:36 Famotidine 20 Mg Tablet PO 20 mg BEDTIME KASSIDY Administration Ketorolac Tromethamine 15 mg 11/20/20 02:00 11/20/20 07:34 Ketorolac Tromethamine 15 Mg/Ml Vial IVPUSH 15 mg Q6H KASSIDY Administration Metoprolol Succinate 25 mg 11/20/20 09:00 11/20/20 07:34 Metoprolol Succinate Er 25 Mg Tab.Er.24h PO 25 mg DAILY KASSIDY Administration Protocol Morphine Sulfate 3 mg 11/20/20 01:12 11/20/20 06:13 Morphine Sulfate 4 Mg/Ml Cartridge IVPUSH 3 mg Q2H PRN Administration Pain, Severe (Pain Scale 7-10) Multivitamins/Vitamin C 1 tab 11/20/20 09:00 11/20/20 07:34 Multivitamin Tablet PO 1 tab DAILY KASSIDY Administration Naloxone HCl 0.2 mg 11/20/20 01:12 Naloxone Hcl 0.4 Mg/Ml Vial IVPUSH Q2M PRN Excessive sedation or RR < 8 Ondansetron HCl 4 mg 11/20/20 01:11 Ondansetron Hcl 4 Mg/2 Ml Vial IVPUSH Q8H PRN Nausea and Vomiting Oxycodone HCl 10 mg 11/20/20 02:00 11/20/20 07:32 Oxycodone Hcl Immed Release 5 Mg Tablet PO 10 mg Q4H [facility] Administration Pharmacy Consult 1 each 11/19/20 13:40 Consult Rx Perform Med Rec MISCELLANE ONCE PRN Consult order Sodium Chloride 3 ml 11/20/20 08:00 11/20/20 07:28 0.9 % Sodium Chloride Flush 3 Ml Syringe IVFLUSH Not Given QSHIFT [facility] Labs CBC & Chem 7: 11/20/20 08:00 11/20/20 05:44 Labs: Laboratory Results - last 24 hr 11/20/20 11/20/20 11/20/20 05:44 05:44 08:00 WBC 13.2 H RBC 3.87 L D Hgb 11.1 L D 11.6 L Hct 34.3 L D 35.7 L MCV 88.6 MCH 28.7 MCHC 32.4 RDW 12.8 Plt Count 235 D MPV 10.0 Absolute Nucleated RBC 0.000 Nucleated RBC % (auto) 0.0 Sodium 135 Potassium 4.6 Chloride 105 Carbon Dioxide 23 Anion Gap 12 BUN 12 Creatinine 0.97 Estim Creat Clear Calc 109.9 Estimated GFR > 60 Fasting Glucose 132 H Calcium 8.4 D Quality Stroke Does the patient have a stroke diagnosis?: No VTE Prior VTE?: No VTE Risk Level:: Surgical - high VTE Device Contraindication: N/A - Device Ordered VTE Drug Contraindication: N/A - Med Ordered Assessment and Plan (1) Status post total knee replacement, bilateral: Status: Acute Assessment and Plan: 60M presented for elective b/l TKA s/p bilateral TKA POD 1 management per ortho team HTN continue metoprolol restart amlodipine once BP persistently elevated GERD pepcid
[2020-11-20] MEDS: 0.9 % Sodium Chloride Flush 3 ML SYRINGE IVFLUSH (14:49)
[2020-11-20] MEDS: Famotidine 20 MG TABLET PO (20:16)
[2020-11-20] MEDS: polyethylene glycoL 3350 17 GM POWD.PACK PO (20:18)
[2020-11-21] MEDS: 0.9 % Sodium Chloride Flush 3 ML SYRINGE IVFLUSH ×2 (01:15→08:12)
[2020-11-21] MEDS: Acetaminophen 325 MG TABLET 650 MG PO ×3 (02:18→13:19)
[2020-11-21] MEDS: Ketorolac Tromethamine 15 MG/ML VIAL IVPUSH ×2 (02:19→08:13)
[2020-11-21] MEDS: oxyCODONE HCl Immed Release 5 MG TABLET 10 MG PO ×4 (02:19→13:19)
[2020-11-21 03:31] VITALS: BP 121/58; PULSE 86; RESP 16; TEMP 36.5; O2SAT 96
--- NOTE | 2020-11-21 06:50 | HO.POSTANES ---
Post Anesthesia Evaluation Post Anesthesia Evaluation Vital Signs: Vital Signs Temp Pulse Resp BP Pulse Ox 11/21/20 03:31 97.7 F 86 16 121/58 L 96 11/20/20 23:24 98 F 86 18 118/56 L 98 11/20/20 19:55 97.6 F 94 16 120/61 99 Anesthesia: Nerve Block and General Mental Status: Awake Pain Control: Satisfactory Nausea/Vomiting: None Hydration: Adequate Anesthesia-Related Issues: No Anes. Related Issues
[2020-11-21 07:09] LABS: Hematocrit 32.1 % (42-52); Hemoglobin 10.5 g/dl (14.0-18.0)
[2020-11-21 07:44] VITALS: BP 127/69; PULSE 96; RESP 19; TEMP 36.7; O2SAT 96
[2020-11-21] MEDS: Metoprolol Succinate ER 25 MG TAB.ER.24H PO (08:13)
[2020-11-21] MEDS: Aspirin 325 MG TABLET PO (08:13)
[2020-11-21] MEDS: polyethylene glycoL 3350 17 GM POWD.PACK PO (08:14)
[2020-11-21] MEDS: Morphine Sulfate 4 MG/ML CARTRIDGE 3 MG IVPUSH (08:14)
[2020-11-21] MEDS: Multivitamin TABLET 1 TAB PO (08:15)
[2020-11-21 09:18] VITALS: BP 127/69; PULSE 96; O2SAT 96
--- NOTE | 2020-11-21 09:34 | P.DS_ITS ---
DS: Providers Provider Date of Service: 11/21/20 Date of admission: 11/19/20 11:02 Primary care physician: Kathe Edge MD Consults: 11/19/20 13:32 Consult to Hospitalist Routine Consulting Provider: Hospitalist Reason For Exam: meidical issues DS: Diagnosis Discharge Diagnosis (1) Status post total knee replacement, bilateral: Status: Acute DS: Medications Discharge Medications Home Medications: Home Medications Medication Instructions Recorded Confirmed amlodipine 10 mg tablet 10 mg PO DAILY 03/13/20 11/19/20 cholecalciferol (vitamin D3) 25 mcg PO DAILY 08/27/20 11/19/20 [Vitamin D3] famotidine 20 mg PO BEDTIME 08/27/20 11/19/20 multivitamin 1 tab PO DAILY 08/27/20 11/19/20 Previous Rx's Medication Instructions Recorded metoprolol succinate 25 mg 25 mg PO DAILY #90 tab 03/02/20 tablet,extended release 24 hr acetaminophen 650 mg PO Q6H 30 Days #240 tab 11/21/20 aspirin 325 mg PO BID 14 Days #28 tab 11/21/20 oxycodone 10 mg PO Q4H 7 Days #42 tab 11/21/20 DS: Summary Hospital Course Hospital Course: This is a 60-year-old gentleman who was seen in our office for bilateral knee osteoarthritis. He had failed all conservative measures and continued to have difficulty with ambulation which was affecting his daily activities. Therefore he consented to move forward with bilateral total knee arthroplasty. The patient underwent a successful Bilateral total kneearthroplasty, was transferred to PACU and then to the floor to recover. During their stay, their vitals were stable, afebrile at 98.3 . Labs were unremarkable, H/H 10.5/32.4. POD 1 he was started on aspirin 325 mg p.o. b.i.d. for DVT ppx, they also received services twice a day. Prior to discharge, their dressing was change, incision clean dry and intact, new Aquacel dressing applied and the plan was to be discharged home with VNA services Time Spent with Patient Time attestation: Total time spent providing and/or coordinating discharge services: Discharge coordination time: Less than 30 minutes Quality: Stroke Does the patient have a stroke diagnosis?: No Physical Exam Vital Signs: Vital Signs: Last Vital Signs Temp 98.0 F 11/21/20 07:44 Pulse 96 11/21/20 09:18 Resp 19 11/21/20 07:44 BP 127/69 11/21/20 09:18 Pulse Ox 96 11/21/20 09:18 Body Mass Index 30.4 Const: General: cooperative, healthy appearing and no acute distress Resp: Effort & Inspection: normal respiratory effort and able to speak in complete sentences Cardio: Rate: regular rate Peripheral pulses: Peripheral pulses 2+ throughout GI: Palpation (GI): Soft to palpation Skin: General skin exam: no rashes or lesions noted Extrem: Other: incision clean dry and intact. Glen intact. No erythema or joint effusion. Calf supple nontender. Neurovascularly intact. DS: Data Data Completed and Pending Completed studies during hospitalization [Text1]: Pending at discharge 11/19/20 10:02 Surgical [PTH] Routine Labs on day of discharge: Laboratory Results - last 24 hr 11/21/20 06:41 Hgb 10.5 L Hct 32.1 L Discharge Plan Discharge Patient Disposition: Home Health Service Discharge Diagnosis: s/p bilat TKA Referrals: Yoel VICKERS [Outside] - 1 Week Corby Currie PA-C [Physician Commercial Analyst] - None (12/05/20 11:00 [facility] Corby Currie PA-C) Discharge Medications: New acetaminophen 325 mg Tablet 650 mg PO Q6H 30 Days Qty: 240 RF: 0 aspirin 325 mg Tablet 325 mg PO BID 14 Days Qty: 28 RF: 0 Continued metoprolol succinate 25 mg tablet extended release 24 hr 25 mg PO DAILY Qty: 90 RF: 3 famotidine 20 mg tablet 20 mg PO BEDTIME RF: 0 multivitamin Tablet 1 tab PO DAILY RF: 0 cholecalciferol (vitamin D3) [Vitamin D3] 25 mcg (1,000 unit) Capsule 25 mcg PO DAILY RF: 0 amlodipine 10 mg tablet 10 mg PO DAILY RF: 0 Discontinued diclofenac sodium 75 mg tablet,delayed release (DR/EC) 75 mg PO BID Qty: 60 RF: 2 aspirin 81 mg Tablet,Chewable 81 mg PO DAILY RF: 0 No Action oxycodone 10 mg tablet 10 mg PO Q4H 7 Days Qty: 42 RF: 0 ibuprofen 600 mg tablet 600 mg PO Q6H PRN (Reason: pain) Qty: 40 RF: 0 Discharge Orders: Discharge Order (Routine); Ordered 11/21/20 Ordered By: Corby Currie Diet: regular diet Activity on Discharge: Use cane or walker Stand Alone Forms: Patient Portal Discharge page Care Plan Goals: Restore function of joint Health Concerns: none Plan of Treatment: Physical Therapy Pain management DVT prophylaxis Assessment: * Physical Therapy for Total knee arthroplasty: gait training, ROM 0-12, quad strength * Limit stair climbing * No showering, no tub bath-keep dressing clean, dry and intact * No driving x6 weeks * Continue Aspirin twice a day x 2 weeks * Follow up with [facility] Orth[facility]ics in 2 weeks Discharge Date/Time: 11/21/20 13:27
--- NOTE | 2020-11-21 10:36 | HO.PM.IMPN ---
Subjective Subjective Date of Service: 11/21/20 Interval History: Feels comfortable, swelling in both knees but pain better controlled. Physical Exam Vital Signs: Vital Signs: Last Vital Signs Temp 98.0 F 11/21/20 07:44 Pulse 96 11/21/20 09:18 Resp 19 11/21/20 07:44 BP 127/69 11/21/20 09:18 Pulse Ox 96 11/21/20 09:18 Body Mass Index 30.4 Const: Other: Constitutional : Alert, oriented, not in distress Neck : Normal inspection, Supple Cardiovascular : RRR, S1 S2, no lower extremity edema Respiratory : Good bilateral air entry, no crackles, wheezes or rhonchi Gastrointestinal: soft, lax, Normal bowel sounds, Non tender Skin : Warm/Dry, swollen knees covered with dressing no erythema or drainage noted. Neurological : Alert & oriented x3, No focal deficit Objective Data Current Medications Generic Name Dose Route Start Last Admin Trade Name Freq PRN Reason Stop Dose Admin Acetaminophen 650 mg 11/20/20 02:00 11/21/20 08:13 Acetaminophen 325 Mg Tablet PO 650 mg Q6H KASSIDY Administration Aspirin 325 mg 11/20/20 09:00 11/21/20 08:13 Aspirin 325 Mg Tablet PO 325 mg BID KASSIDY Administration Famotidine 20 mg 11/19/20 21:00 11/20/20 20:16 Famotidine 20 Mg Tablet PO 20 mg BEDTIME KASSIDY Administration Ketorolac Tromethamine 15 mg 11/20/20 02:00 11/21/20 08:13 Ketorolac Tromethamine 15 Mg/Ml Vial IVPUSH 15 mg Q6H KASSIDY Administration Metoprolol Succinate 25 mg 11/20/20 09:00 11/21/20 08:13 Metoprolol Succinate Er 25 Mg Tab.Er.24h PO 25 mg DAILY KASSIDY Administration Protocol Morphine Sulfate 3 mg 11/20/20 01:12 11/21/20 08:14 Morphine Sulfate 4 Mg/Ml Cartridge IVPUSH 3 mg Q2H PRN Administration Pain, Severe (Pain Scale 7-10) Multivitamins/Vitamin C 1 tab 11/20/20 09:00 11/21/20 08:15 Multivitamin Tablet PO 1 tab DAILY KASSIDY Administration Naloxone HCl 0.2 mg 11/20/20 01:12 Naloxone Hcl 0.4 Mg/Ml Vial IVPUSH Q2M PRN Excessive sedation or RR < 8 Ondansetron HCl 4 mg 11/20/20 01:11 Ondansetron Hcl 4 Mg/2 Ml Vial IVPUSH Q8H PRN Nausea and Vomiting Oxycodone HCl 10 mg 11/20/20 02:00 11/21/20 10:01 Oxycodone Hcl Immed Release 5 Mg Tablet PO 10 mg Q4H KASSIDY Administration Pharmacy Consult 1 each 11/19/20 13:40 Consult Rx Perform Med Rec MISCELLANE ONCE PRN Consult order Polyethylene Glycol 17 gm 11/20/20 21:00 11/21/20 08:14 Polyethylene Glycol 3350 17 Gm Powd.Pack PO 17 gm BID KASSIDY Administration Sodium Chloride 3 ml 11/20/20 08:00 11/21/20 08:12 0.9 % Sodium Chloride Flush 3 Ml Syringe IVFLUSH 3 ml QSHIFT KASSIDY Administration Labs CBC & Chem 7: 11/21/20 06:41 11/20/20 05:44 Labs: Laboratory Results - last 24 hr 11/21/20 06:41 Hgb 10.5 L Hct 32.1 L Quality Stroke Does the patient have a stroke diagnosis?: No VTE Prior VTE?: No VTE Risk Level:: Surgical - high VTE Device Contraindication: N/A - Device Ordered VTE Drug Contraindication: N/A - Med Ordered Assessment and Plan (1) Status post total knee replacement, bilateral: Status: Acute Assessment and Plan: 60 M presented for elective b/l TKA s/p bilateral TKA POD 2 management per ortho team acute anemia Hb dropped to 10.5 from baseline of 15, likely dilutional as no blood loss reported HTN continue metoprolol continue amlodipine at wa. LYSSA mancilla
[2020-11-21 12:00] VITALS: RESP 18
== END 2020-11-21 13:27 | disposition home health service (06) | DRG 302 ==
LOC: HO.S3 11-20 08:55
PROVIDERS: Internal Medicine; Physician Assistant; Admitting Provider Orthopaedic Surgery; PCP Internal Medicine; Visit Provider Orthopaedic Surgery
PROC: 0SRD0JA Replacement of Left Knee Joint with Synthetic Substitute, Uncemented, Open Approach (ICD-10-PCS; CPT 27447; principal; 2020-11-19 07:30)
DX: M17.0 Bilateral primary osteoarthritis of knee (principal); K21.9 Gastro-esophageal reflux disease without esophagitis; I10 Essential (primary) hypertension; Z20.822 Contact with and (suspected) exposure to COVID-19; Z79.899 Other long term (current) drug therapy
CPT/HCPCS: 36415; 73560; 80048; 85014; 85018; 85025; 85027; 86850; 86900; 86901; 87635; 88305; 88311; 97110; 97116; 97163; 97165; C1776; J0131; J0690; J1100; J1170; J1885; J2250; J2270; J2405; J3010

== ENCOUNTER 2020-11-24 18:17 | Emergency (ER) | payer OTHER, SELFPAY ==
--- NOTE | 2020-11-24 | ECG_ITS ---
Test Reason : CHEST PAIN Blood Pressure : / mmHG Vent. Rate : 102 BPM Atrial Rate : 102 BPM P-R Int : 174 ms QRS Dur : 084 ms QT Int : 352 ms P-R-T Axes : 039 009 045 degrees QTc Int : 458 ms Sinus tachycardia Possible Left atrial enlargement Borderline ECG When compared with ECG of 27-AUG-2020 13:23, No significant change was found Referred By: Generic ED Physician Electronically Signed By:KELLIE ANGELES MD
--- NOTE | ~2020-11-24 | CT_ITS ---
EXAMINATION: CT ANGIOGRAM CHEST WITH AND WITHOUT CONTRAST (CT PULMONARY ANGIOGRAM FOR PE) CLINICAL INFORMATION: Status post bilateral TKR, left-sided chest pain. COMPARISON: None TECHNIQUE: Prior to contrast administration, noncontrast localization images were obtained. Subsequently, multidetector volumetric imaging was performed from the thoracic inlet to below the diaphragms following the administration of 71 mL Omnipaque 350 intravenous contrast. No contrast reaction reported. Sagittal, coronal, and MIP oblique sagittal reformatted images were obtained on the CT workstation, uploaded to PACS, and reviewed. This CT examination was performed using dose optimization techniques as appropriate, variously including the following: *Automated exposure control. *Adjustment of mA and/or kV according to patient size (this includes techniques or standardized protocols for targeted exams where dose is matched to indication/reason for exam; i.e. extremities or head). *Use of iterative reconstruction technique. Total exam dose-length product 394 mGy-cm. FINDINGS: QUALITY OF STUDY/CONTRAST BOLUS: Satisfactory. PULMONARY ARTERIES: No evidence of filling defects to suggest central or segmental pulmonary emboli. THORACIC AORTA: No aneurysm or dissection. LUNG: Patchy airspace opacities in the subpleural region of the left lower lobe, along with ground-glass opacities, as well as ground-glass opacities in the posterior aspect of the right lower lobe. This may reflect atelectasis, component of inflammatory or infectious process, or combination of these. No lobar consolidation. No suspicious nodules identified. PLEURA: No pleural effusion or pneumothorax. MEDIASTINUM: Subcentimeter mediastinal lymph nodes in the mediastinum. No enlarged lymph nodes seen. Streak artifact limits evaluation of thyroid gland. Normal heart size. No pericardial effusion. No evidence of septal bowing or right heart strain. CHEST WALL/AXILLA: Prominent right axillary lymph node 1.1 cm in short axis, nonspecific. Smaller subcentimeter lymph nodes are seen in the axilla, otherwise. OSSEOUS STRUCTURES: No acute or suspicious osseous abnormality. Multilevel degenerative changes in the spine. UPPER ABDOMEN: Unremarkable. No reflux of contrast into the hepatic veins to suggest elevated right heart pressures. CT/CT angio chest PE protocol IMPRESSION: 1. No evidence of filling defects to suggest central or segmental pulmonary emboli. 2. Patchy ground-glass and airspace opacities in bilateral lower lungs, from atelectasis, infectious or inflammatory process. No dense consolidation. 3. Nonspecific prominent right axillary lymph node measuring 1.1 cm in short axis. VTE: Negative.
[2020-11-24 18:19] VITALS: BP 176/86; PULSE 119; RESP 18; TEMP 36.8; O2SAT 98; BMI 30.2
--- NOTE | 2020-11-24 19:09 | ED_ITS ---
HPI - Chest Pain General Chief Complaint: Chest Pain Stated Complaint: Chest pain Time Seen by Provider: 11/24/20 19:09 Source: patient Mode of arrival: ambulatory Limitations: no limitations History of Present Illness HPI narrative: patient with no known chronic coronary artery disease status post bilateral knee replacement on 11/19/2020 on aspirin comes here for acute onset of left-sided sharp chest pain since 14:00 with increased shortness of breath no radiation of pain no diaphoresis no nausea no vomiting patient never had similar pain in the past no calf pain patient has been ambulatory with cane Related Data Home Medications Medication Instructions Recorded Confirmed amlodipine 10 mg tablet 10 mg PO DAILY 03/13/20 11/24/20 cholecalciferol (vitamin D3) 25 mcg PO DAILY 08/27/20 11/24/20 [Vitamin D3] famotidine 20 mg PO BEDTIME 08/27/20 11/24/20 multivitamin 1 tab PO DAILY 08/27/20 11/24/20 Previous Rx's Medication Instructions Recorded metoprolol succinate 25 mg 25 mg PO DAILY #90 tab 03/02/20 tablet,extended release 24 hr acetaminophen 650 mg PO Q6H 30 Days #240 tab 11/21/20 aspirin 325 mg PO BID 14 Days #28 tab 11/21/20 oxycodone 10 mg PO Q4H 7 Days #42 tab 11/21/20 ibuprofen 600 mg PO Q6H PRN #40 tab 11/24/20 Allergies Allergy/AdvReac Type Severity Reaction Status Date / Time lisinopril AdvReac Intermediate cough Verified 11/24/20 18:19 Review of Systems Review of Systems: Constitutional : No Weight loss, No Fever, No Chills ENT/Mouth : No sore throat, No Rhinorrhea Eyes: No Eye Pain, No Swelling Cardiovascular :+ Chest Pain, no palpitations Respiratory : No Cough, No Sputum, + shortness of breath Gastrointestinal : no Nausea, No Vomiting, No Diarrhea, No abdominal Pain, no black stools Genitourinary : No Dysuria, No Urinary Frequency Musculoskeletal : No joint pain, No Myalgias, No Joint Swelling Skin : No Skin Lesions, No rash Neuro : No Weakness, No Numbness, No Dizziness, No Headache Psych : No Anxiety/Panic, No Depression Heme/Lymph: No Bruising, No Lymphadenopathy Endocrine : No Polyuria, No Polydipsia All other systems reviewed and are negative PMFSH Past Medical History Medical History Annual physical exam Arthritis COVID-19 vaccine administered GERD (gastroesophageal reflux disease) Herniated disc Hx of sciatica Hypertension Murmur Normal colonoscopy Palpitations Primary osteoarthritis of knees, bilateral Surgical History H/O arthroscopic knee surgery H/O colonoscopy History of hand surgery Family History Family History Mother No problems noted. Father Stroke Social History Social History Household Members: Family Housing: House Are you a primary pharmacy customer care specialist to a significant other at home: No Do you presently have visiting nurse or other home services: No Alcohol intake: former Patient Tobacco Use Status: Never used Tobacco Smoked in Last 30 Days: No Second Hand Smoke Exposure: No Use of substances other than those prescribed or required for medical reasons: No Advance Directives: No Advance Directives Information Provided: No service: No Current occupational status: unemployed Current occupation: [employer] - Right Handed Physical Exam Vital Signs: Vital Signs: Last Vital Signs Temp 98.3 F 11/24/20 18:19 Pulse 99 11/24/20 22:51 Resp 18 11/24/20 22:51 BP 130/60 11/24/20 22:51 Pulse Ox 95 11/24/20 20:00 Body Mass Index 30.2 Appearance: Alert. Oriented X3. pain on deep inspiration Eyes: PERRLA, No Nystagmus ENT: Pharynx normal. Oral Mucosa moist Neck: Normal inspection. Neck supple. CVS: Normal heart rate and rhythm. Pulses normal. Respiratory: No respiratory distress. Equal air entry bilateral, no wheezing/rales/rhonchi left lower rib tenderness+ Abdomen: Soft and nontender. Bowel sounds are present, no mass palpable, no CVA tenderness Skin: Skin warm and dry. Normal skin color. Normal skin turgor. Extremities: bilateral trace lower extremity edema. No calf tenderness bilateral status post knee replacement with surgical dressing Neuro: Oriented X 3. No motor deficit. No sensory deficit. MDM - Chest Pain MDM Narrative Medical decision making narrative: patient with left pleuritic chest pain without any trauma no hypoxia CTA chest negative for any PE or infiltrate patient COVID-[address] scan finding bilateral bases likely atelectasis. Will discharge patient home on pain medication Lab Data Attestation: I reviewed the patient's lab results. Result diagrams: 11/24/20 19:08 11/24/20 19:08 Labs: Lab Results 11/24/20 11/24/20 11/24/20 Range/Units 19:08 19:08 19:08 WBC 9.2 (4.8-10.8) X10*3/uL RBC 3.65 L (4.60-5.80) X10*6/uL Hgb 10.5 L (14.0-18.0) g/dl Hct 32.4 L (42-52) % MCV 88.8 (80-98) fL MCH 28.8 (27.0-33.0) pg MCHC 32.4 (31.0-36.0) g/dl RDW 12.6 (11.0-16.0) % Plt Count 373 D (160-400) X10*3/uL MPV 9.7 (9.4-12.4) fL Immature Gran % (Auto) 0.9 H (0.0-0.4) % Neut % (Auto) 63.5 (45-73) % Lymph % (Auto) 22.5 (20-40) % [place] % (Auto) 8.5 (2-11) % Eos % (Auto) 4.0 (0-4) % Baso % (Auto) 0.6 (0-2) % Lymph # (Auto) 2.1 (1.2-4.9) X10*3/uL [place] # (Auto) 0.8 (0.1-1.2) X10*3/uL Eos # (Auto) 0.4 (0.0-0.4) X10*3/uL Baso # (Auto) 0.1 (0.0-0.2) X10*3/uL Abs Immat Gran (auto) 0.08 H (0.00-0.03) X10*3/uL Absolute Neuts (auto) 5.9 (2.0-8.3) X10*3/uL Absolute Nucleated RBC 0.000 (0.0-0.012) X10*3/uL Nucleated RBC % (auto) 0.0 (0.0-0.2) /100WBC PT 10.5 (9.9-13.0) SEC INR 0.9 (0.9-1.1) APTT 38.1 H (24.1-38.0) SEC Hold Blue Top SEE NOTE Sodium 137 (135-145) mmol/L Potassium 4.2 (3.3-5.1) mmol/L Chloride 101 (96-108) mmol/L Carbon Dioxide 26 (22-29) mmol/L Anion Gap 14 (12-20) BUN 8 L (9-16) mg/dL Creatinine 0.89 (0.5-1.4) mg/dL Estim Creat Clear Calc 119.5 Estimated GFR > 60 Random Glucose 117 H (60-115) mg/dL Calcium 9.1 D (8.4-10.2) mg/dL Total Bilirubin 1.1 H (0.0-1.0) mg/dL AST 38 H (5-37) U/L ALT 48 H (0-40) U/L Alkaline Phosphatase 94 D (39-117) U/L Troponin I High Sens (<3.5-35.0) ng/L Total Protein 6.4 L (6.5-8.0) g/dL Albumin 3.8 (3.5-5.0) g/dL Lipase 12 (8-78) U/L COVID-19 (RATNA) (Negative) COVID-19 Clin Com 11/24/20 11/24/20 Range/Units 19:08 19:08 WBC (4.8-10.8) X10*3/uL RBC (4.60-5.80) X10*6/uL Hgb (14.0-18.0) g/dl Hct (42-52) % MCV (80-98) fL MCH (27.0-33.0) pg MCHC (31.0-36.0) g/dl RDW (11.0-16.0) % Plt Count (160-400) X10*3/uL MPV (9.4-12.4) fL Immature Gran % (Auto) (0.0-0.4) % Neut % (Auto) (45-73) % Lymph % (Auto) (20-40) % [place] % (Auto) (2-11) % Eos % (Auto) (0-4) % Baso % (Auto) (0-2) % Lymph # (Auto) (1.2-4.9) X10*3/uL [place] # (Auto) (0.1-1.2) X10*3/uL Eos # (Auto) (0.0-0.4) X10*3/uL Baso # (Auto) (0.0-0.2) X10*3/uL Abs Immat Gran (auto) (0.00-0.03) X10*3/uL Absolute Neuts (auto) (2.0-8.3) X10*3/uL Absolute Nucleated RBC (0.0-0.012) X10*3/uL Nucleated RBC % (auto) (0.0-0.2) /100WBC PT (9.9-13.0) SEC INR (0.9-1.1) APTT (24.1-38.0) SEC Hold Blue Top Sodium (135-145) mmol/L Potassium (3.3-5.1) mmol/L Chloride (96-108) mmol/L Carbon Dioxide (22-29) mmol/L Anion Gap (12-20) BUN (9-16) mg/dL Creatinine (0.5-1.4) mg/dL Estim Creat Clear Calc Estimated GFR Random Glucose (60-115) mg/dL Calcium (8.4-10.2) mg/dL Total Bilirubin (0.0-1.0) mg/dL AST (5-37) U/L ALT (0-40) U/L Alkaline Phosphatase (39-117) U/L Troponin I High Sens < 3.5 (<3.5-35.0) ng/L Total Protein (6.5-8.0) g/dL Albumin (3.5-5.0) g/dL Lipase (8-78) U/L COVID-19 (RATNA) Negative (Negative) COVID-19 Clin Com See Note ECG Data ECG #1: Attestation: I personally reviewed and interpreted this ECG as follows: Interpretation: sinus tachycardia with heart rate 102 beats per minute normal intervals normal axis no acute ST T wave changes no acute ischemia Discharge Plan Discharge Clinical Impression: Pleurisy Patient Disposition: Home, Self-Care Instructions: Pleurisy (ED) Additional Instructions: your chest CT is negative for blood clot. Take pain medication for pain as prescribed Prescriptions: New ibuprofen 600 mg tablet 600 mg PO Q6H PRN (Reason: pain) Qty: 40 RF: 0 No Action metoprolol succinate 25 mg tablet extended release 24 hr 25 mg PO DAILY Qty: 90 RF: 3 famotidine 20 mg tablet 20 mg PO BEDTIME RF: 0 multivitamin Tablet 1 tab PO DAILY RF: 0 cholecalciferol (vitamin D3) [Vitamin D3] 25 mcg (1,000 unit) Capsule 25 mcg PO DAILY RF: 0 oxycodone 10 mg tablet 10 mg PO Q4H 7 Days Qty: 42 RF: 0 acetaminophen 325 mg Tablet 650 mg PO Q6H 30 Days Qty: 240 RF: 0 aspirin 325 mg Tablet 325 mg PO BID 14 Days Qty: 28 RF: 0 amlodipine 10 mg tablet 10 mg PO DAILY RF: 0 Interventions: ED Discharge Assessment Last Done: 11/24/20 22:51 Discharge Date/Time: 11/24/20 22:52
[2020-11-24 19:10] VITALS: BP 149/84; PULSE 105; PULSE 107; RESP 18; O2SAT 96
[2020-11-24 19:14] LABS: MANUAL DIFF FLAG NO
[2020-11-24 19:21] LABS: Basophils Absolute Auto 0.1 X10*3/uL (0.0-0.2); Basophils Percent Auto 0.6 % (0-2); Eosinophils Absolute Auto 0.4 X10*3/uL (0.0-0.4); Hematocrit 32.4 % (42-52); Hemoglobin 10.5 g/dl (14.0-18.0); Imm Gran Abs Auto 0.08 X10*3/uL (0.00-0.03); Imm Gran Pct Auto 0.9 % (0.0-0.4); Lymphocytes Absolute Auto 2.1 X10*3/uL (1.2-4.9); Lymphocytes Percent Auto 22.5 % (20-40); Mean Corpuscular HGB Conc 32.4 g/dl (31.0-36.0); Mean Corpuscular Hemoglobin 28.8 pg (27.0-33.0); Mean Corpuscular Volume 88.8 fL (80-98); Mean Platelet Volume 9.7 fL (9.4-12.4); Monocytes Absolute Auto 0.8 X10*3/uL (0.1-1.2); Monocytes Percent Auto 8.5 % (2-11); Neutrophils Absolute Auto 5.9 X10*3/uL (2.0-8.3); Neutrophils Percent Auto 63.5 % (45-73); Platelet Count 373 X10*3/uL (160-400); Red Blood Count 3.65 X10*6/uL (4.60-5.80); Red Cell Distribution Width 12.6 % (11.0-16.0); White Blood Count 9.2 X10*3/uL (4.8-10.8)
[2020-11-24 19:29] LABS: INTERNATIONAL NORM RATIO 0.9 (0.9-1.1); Prothrombin Time 10.5 SEC (9.9-13.0)
[2020-11-24 19:31] LABS: Partial Thromboplastin Time 38.1 SEC (24.1-38.0)
[2020-11-24 19:37] LABS: COVID-19 Test Negative (Negative)
[2020-11-24 19:44] LABS: Alanine Aminotransferase 48 U/L (0-40); Albumin Level 3.8 g/dL (3.5-5.0); Alkaline Phosphatase 94 U/L (39-117); Anion Gap 14 (12-20); Aspartate Amino Transferase 38 U/L (5-37); Bilirubin Total 1.1 mg/dL (0.0-1.0); Blood Urea Nitrogen 8 mg/dL (9-16); Calcium 9.1 mg/dL (8.4-10.2); Carbon Dioxide 26 mmol/L (22-29); Chloride 101 mmol/L (96-108); Creatinine Clr Calc Pharmacy 119.5; Estimated Glomerular Filt Rate > 60; Glucose Random 117 mg/dL (60-115); Lipase 12 U/L (8-78); Potassium 4.2 mmol/L (3.3-5.1); Sodium 137 mmol/L (135-145); Total Protein 6.4 g/dL (6.5-8.0)
[2020-11-24 19:50] LABS: Troponin-I High Sensitivity < 3.5 ng/L (<3.5-35.0)
[2020-11-24 20:00] VITALS: BP 143/95; PULSE 101; RESP 18; O2SAT 95
[2020-11-24] MEDS: iohexoL 350 MG/ML 100 ML INFUS..BTL IV (20:12)
[2020-11-24] MEDS: Morphine Sulfate 4 MG/ML CARTRIDGE IVPUSH (20:26)
[2020-11-24] MEDS: Ketorolac Tromethamine 30 MG/ML VIAL IVPUSH (22:21)
[2020-11-24 22:51] VITALS: BP 130/60; PULSE 99; RESP 18
== END 2020-11-24 22:52 | disposition home or self-care (01) ==
PROVIDERS: Emergency Provider Internal Medicine
DX: R09.1 Pleurisy (principal); I10 Essential (primary) hypertension; Z79.82 Long term (current) use of aspirin; Z79.899 Other long term (current) drug therapy; Z96.653 Presence of artificial knee joint, bilateral; Z98.890 Other specified postprocedural states; Z20.822 Contact with and (suspected) exposure to COVID-19
CPT/HCPCS: 36415; 71275; 80053; 83690; 84484; 85025; 85610; 85730; 87635; 93005; 96374; 96375; 99284; 99285; J1885; J2270; Q9967

== ENCOUNTER → 2020-12-05 11:04 | Outpatient (BNVA) | payer OTHER, SELFPAY | PROVIDERS: PCP Internal Medicine; Visit Provider Physician Assistant | DX: Z47.1 Aftercare following joint replacement surgery (principal); Z96.653 Presence of artificial knee joint, bilateral | CPT/HCPCS: 99212 ==

== ENCOUNTER → 2021-01-02 15:05 | Outpatient (BNVA) | payer OTHER, SELFPAY | PROVIDERS: PCP Internal Medicine; Visit Provider Orthopaedic Surgery | DX: Z47.1 Aftercare following joint replacement surgery (principal); Z96.653 Presence of artificial knee joint, bilateral | CPT/HCPCS: 99212 ==

== ENCOUNTER 2021-01-18 08:00 | Outpatient (RCR) | payer OTHER, SELFPAY ==
--- NOTE | 2020-12-14 09:42 | MHC.PT.EP ---
[facility] [place] Office [place] Office [place] Office [address] Tiff Snyder [address] [phone] F: [phone] F: [phone] F: [phone] F: [phone] Physical Therapy Plan of Care Date of Evaluation: Date of Surgery: October Diagnosis: bilateral knee replacement Assessment: The patient arrived s/p a bilateral knee replacement. He has a wonderful attitude and he is compliant with his HEP. The patient had reduced knee extension ROM bilaterally. He is progressing well with knee flexion, but it is still limited. The patient has an asymmetrical gait pattern as expected following surgery. He has reduced squat mechanics, and reduced ability to transfer with normal fluidity. He is a good candidate for skilled PT. Frequency and Duration: The patient will be seen 2x/week x 6 weeks. Short Term Goals: 1. Improve knee flexion to 120 to allow functional movements. 2. Improve knee extension to 0 to allow for improved heel strike. 3. Pt to be able to move from sit to stand with good tolerance and control. Longterm Goals: 4 weeks - the patient will have no limiting pain in her knees during gait with community ambulation to show improved activity tolerance. 4 weeks - pt will have more quad control with TKE demonstrated by no medial collapse during a curb height step. 4 weeks -patient to be able to return to all functional movements and ADL's without limiting knee pain to show return to PLOF. Treatment Plan: Modalities to reduce pain, spasms and effusion. Manual therapy to restore motion and function. Therapeutic exercise to improve strength and flexibility. Neuromuscular re-education for posture and balance. Therapeutic activities to return to functional activities of daily living. Electronically signed by: Tamika Rivas PT DPT Please sign and return to therapist. Thank you for your referral.
--- NOTE | 2021-01-25 11:27 | MHC.PT.DC ---
[facility] [place] Office [place] Office [place] Office [address] Tiff Snyder [address] [phone] F: [phone] F: [phone] F: [phone] F: [phone] Physical Therapy Discharge Report Diagnosis: bilateral knee replacement Date of Surgery: October Date of Evaluation: 12/14/20 Date of Discharge: 01/25/21 Treatments to Date: 12 Cancellations to Date: No Shows to Date: Discharge Status: Achieved Goals Improved Function Independent with HEP Discharge Summary: Pt has met all LTG and STG. He has WNL for ROM bilaterally. PROM he has right 0-124, left 0-123. He has more pain on his right side. He was able to functionally get up and down standard steps. He is independent with his HEP which he has been advised to continue. Electronically signed by: Tamika Rivas PT DPT Please sign and return to therapist. Thank you for your referral.
== END 2021-01-25 10:00 | disposition home or self-care (01) ==
LOC: HO.PT 08:00
PROVIDERS: Visit Provider Orthopaedic Surgery
DX: Z96.653 Presence of artificial knee joint, bilateral (principal)
CPT/HCPCS: 97110; 97116; 97140; 97162; 97530

== ENCOUNTER 2021-03-06 07:26 | Outpatient (REF) | payer OTHER, SELFPAY ==
--- NOTE | ~2021-03-06 | XR_ITS ---
EXAMINATION: CR X-RAY KNEE RIGHT 2 VIEW, BILATERAL KNEES STANDING CLINICAL INFORMATION: Knee pain. COMPARISON: Radiographs dated 11/20/2020. TECHNIQUE: Single standing AP views of the bilateral knees as well as 2 views of the right knee were obtained. FINDINGS: The patient is status post bilateral knee arthroplasty showing good anatomic alignment and no evidence for hardware malfunction. There is no acute fracture. The joint spaces are unremarkable. There is a trace right suprapatellar joint effusion. Mild prepatellar soft tissue swelling is seen. XR/XR knee standing BI IMPRESSION: 1. No hardware or osseous abnormality bilaterally. 2. Trace right suprapatellar joint effusion and prepatellar soft tissue swelling is presumed postsurgical. Correlate with physical exam.
--- NOTE | ~2021-03-06 | XR_ITS ---
EXAMINATION: CR X-RAY KNEE RIGHT 2 VIEW, BILATERAL KNEES STANDING CLINICAL INFORMATION: Knee pain. COMPARISON: Radiographs dated 11/20/2020. TECHNIQUE: Single standing AP views of the bilateral knees as well as 2 views of the right knee were obtained. FINDINGS: The patient is status post bilateral knee arthroplasty showing good anatomic alignment and no evidence for hardware malfunction. There is no acute fracture. The joint spaces are unremarkable. There is a trace right suprapatellar joint effusion. Mild prepatellar soft tissue swelling is seen. XR/XR knee LT 2V IMPRESSION: 1. No hardware or osseous abnormality bilaterally. 2. Trace right suprapatellar joint effusion and prepatellar soft tissue swelling is presumed postsurgical. Correlate with physical exam.
--- NOTE | ~2021-03-06 | XR_ITS ---
EXAMINATION: CR X-RAY KNEE RIGHT 2 VIEW, BILATERAL KNEES STANDING CLINICAL INFORMATION: Knee pain. COMPARISON: Radiographs dated 11/20/2020. TECHNIQUE: Single standing AP views of the bilateral knees as well as 2 views of the right knee were obtained. FINDINGS: The patient is status post bilateral knee arthroplasty showing good anatomic alignment and no evidence for hardware malfunction. There is no acute fracture. The joint spaces are unremarkable. There is a trace right suprapatellar joint effusion. Mild prepatellar soft tissue swelling is seen. XR/XR knee RT 2V IMPRESSION: 1. No hardware or osseous abnormality bilaterally. 2. Trace right suprapatellar joint effusion and prepatellar soft tissue swelling is presumed postsurgical. Correlate with physical exam.
== END 2021-03-06 07:27 | disposition home or self-care (01) ==
LOC: HO.HOSX 07:26
PROVIDERS: Visit Provider Physician Assistant
DX: T84.84XA Pain due to internal orthopedic prosthetic devices, implants and grafts, initial encounter (principal); Z47.1 Aftercare following joint replacement surgery; Z96.653 Presence of artificial knee joint, bilateral
CPT/HCPCS: 73560; 73565; 99212

== ENCOUNTER 2021-08-03 09:46 | Outpatient (REF) | payer OTHER, SELFPAY ==
[2021-08-03 10:40] LABS: Hematocrit 45.1 % (42.0-52.0); Hemoglobin 14.9 g/dl (14.0-18.0); Mean Corpuscular Hemoglobin 28.6 pg (27.0-33.0); Mean Corpuscular Volume 86.6 fL (80.0-98.0); Mean Platelet Volume 9.7 fL (9.4-12.4); Platelet Count 301 X10*3/uL (160-400); Red Blood Count 5.21 X10*6/uL (4.60-5.80); Red Cell Distribution Width 12.6 % (11.0-16.0); White Blood Count 6.7 X10*3/uL (4.8-10.8)
[2021-08-03 10:51] LABS: Alanine Aminotransferase 30 U/L (0-40); Albumin Level 4.3 g/dL (3.5-5.0); Alkaline Phosphatase 81 U/L (39-117); Anion Gap 12 (12-20); Aspartate Amino Transferase 24 U/L (5-37); Bilirubin Total 0.8 mg/dL (0.0-1.0); Blood Urea Nitrogen 13 mg/dL (9-16); Calcium 9.6 mg/dL (8.4-10.2); Carbon Dioxide 26 mmol/L (22-29); Chloride 103 mmol/L (96-108); Cholesterol 187 mg/dL; Estimated Glomerular Filt Rate > 60; Glucose Fasting 102 mg/dL (60-99); HDL Cholesterol 51 mg/dL; LDL Cholesterol Calculated 114 mg/dl; Potassium 4.3 mmol/L (3.3-5.1); Sodium 137 mmol/L (135-145); Total Protein 6.8 g/dL (6.5-8.0); Triglycerides 113 mg/dL
[2021-08-03 11:15] LABS: Prostate Specific Antigen Scr 0.53 ng/mL (<0.05-4.0); Vitamin D 25-OH Total 41.9 ng/mL (>30)
== END 2021-08-03 09:47 | disposition home or self-care (01) ==
LOC: HO.LAB 09:46
PROVIDERS: PCP Internal Medicine; Visit Provider Internal Medicine
DX: Z00.00 Encounter for general adult medical examination without abnormal findings (principal); I10 Essential (primary) hypertension
CPT/HCPCS: 36415; 80053; 80061; 82306; 84153; 85027

== ENCOUNTER → 2021-08-19 14:42 | Outpatient (RCR) | payer OTHER, SELFPAY ==
--- NOTE | 2020-03-27 10:07 | MHC.PT.EP ---
[facility] [place] [facility] [place] [facility] [place] [facility] [address] Tiff Snyder [address] [phone] F: [phone] F: [phone] F: [phone] F: [phone] Physical Therapy Plan of Care Date of Evaluation: 03/27/20 Date of Surgery: TBD Diagnosis: Prehab B knee OA Assessment: Pt is a 60 y/o male referred to skilled PT for prehab prior to B TKA. He doesn't have a surgery date scheduled yet, and must complete PT prior to booking the surgery. Assessment reveals: pain, decreased patella mobility, impaired knee flexion AROM/AAROM, decreased knee extension AROM/AAROM, muscle length impairments (hamstrings, hip flexors, quads), impaired gait, and impaired posture. Related functional limitations include: difficulty lifting, kneeling, climbing ladders, stairs, walking any great distance, squatting, and sleeping. Pt will benefit from skilled PT services with primary focus on prehab prior to TKR 1-2x/week for 4-8 weeks in order to maintain/improve knee range of motion, improve/maintain quad strength and control, and educate Pt in preparation for surgical intervention. Frequency and Duration: The patient will be seen 1-2x/week for 4-8 weeks, minimum of 38 minutes Short Term Goals: -In 3 weeks, Pt to improve knee extension range of motion by at least 8 degrees B. -In 4 weeks, Pt to improve muscle length B. Mcc Goals: -In 6 weeks, Pt to demonstrate I w/ HEP. -In 8 weeks, Pt to demonstrate understanding of post op PT process, exercises, equipment use, and plan. Treatment Plan: Modalities to reduce pain, spasms and effusion. Manual therapy to restore motion and function. Therapeutic exercise to improve strength and flexibility. Neuromuscular re-education for posture and balance. Therapeutic activities to return to functional activities of daily living. Prehab for B TKR Please sign and return to therapist. Thank you for your referral.
--- NOTE | 2020-05-10 12:33 | MHC.PT.DC ---
[facility] [place] Office [place] Office [place] Office [address] Tiff Snyder [address] [phone] F: [phone] F: [phone] F: [phone] F: [phone] Physical Therapy Discharge Report Diagnosis: Prehab B knee OA Date of Surgery: TBD Date of Evaluation: 03/27/20 Date of Discharge: 05/10/20 Treatments to Date: 9 Cancellations to Date: No Shows to Date: Discharge Status: Independent with HEP Discharge Summary: Pt demonstrates I w/ HEP and prepared for B TKR soon. D/C to HEP. Electronically signed by: Wen Farooq PT, DPT Please sign and return to therapist. Thank you for your referral.
== END | disposition home or self-care (01) ==
LOC: HO.PT 03-27 08:04
PROVIDERS: Visit Provider Orthopaedic Surgery
DX: M17.0 Bilateral primary osteoarthritis of knee (principal)
CPT/HCPCS: 97110; 97161; 97530

== ENCOUNTER 2022-02-11 08:21 | Outpatient (REF) | payer OTHER, SELFPAY ==
--- NOTE | ~2022-02-11 | XR_ITS ---
EXAMINATION: XR BOTH KNEES AP STANDING XR RIGHT KNEE, 2 VIEWS XR LEFT KNEE, 2 VIEWS CLINICAL INFORMATION: Bilateral knee pain. COMPARISON: Most recent knee radiographs dated 03/06/2021. TECHNIQUE: Standing AP view of both knees and lateral and sunrise views of the right and left knee. FINDINGS: RIGHT KNEE: Total right knee arthroplasty. No hardware fracture. No perihardware lucency to suggest loosening or infection. No osseous fracture. No significant joint effusion. No abnormal soft tissue calcification. LEFT KNEE: Total left knee arthroplasty. No hardware fracture. No perihardware lucency to suggest loosening or infection. No osseous fracture. No abnormal soft tissue calcification. No significant joint effusion. XR/XR knee RT 2V IMPRESSION: RIGHT KNEE: Total right knee arthroplasty without evidence of hardware complication. LEFT KNEE: Total left knee arthroplasty without evidence of hardware complication.
--- NOTE | ~2022-02-11 | XR_ITS ---
EXAMINATION: XR BOTH KNEES AP STANDING XR RIGHT KNEE, 2 VIEWS XR LEFT KNEE, 2 VIEWS CLINICAL INFORMATION: Bilateral knee pain. COMPARISON: Most recent knee radiographs dated 03/06/2021. TECHNIQUE: Standing AP view of both knees and lateral and sunrise views of the right and left knee. FINDINGS: RIGHT KNEE: Total right knee arthroplasty. No hardware fracture. No perihardware lucency to suggest loosening or infection. No osseous fracture. No significant joint effusion. No abnormal soft tissue calcification. LEFT KNEE: Total left knee arthroplasty. No hardware fracture. No perihardware lucency to suggest loosening or infection. No osseous fracture. No abnormal soft tissue calcification. No significant joint effusion. XR/XR knee LT 2V IMPRESSION: RIGHT KNEE: Total right knee arthroplasty without evidence of hardware complication. LEFT KNEE: Total left knee arthroplasty without evidence of hardware complication.
--- NOTE | ~2022-02-11 | XR_ITS ---
EXAMINATION: XR BOTH KNEES AP STANDING XR RIGHT KNEE, 2 VIEWS XR LEFT KNEE, 2 VIEWS CLINICAL INFORMATION: Bilateral knee pain. COMPARISON: Most recent knee radiographs dated 03/06/2021. TECHNIQUE: Standing AP view of both knees and lateral and sunrise views of the right and left knee. FINDINGS: RIGHT KNEE: Total right knee arthroplasty. No hardware fracture. No perihardware lucency to suggest loosening or infection. No osseous fracture. No significant joint effusion. No abnormal soft tissue calcification. LEFT KNEE: Total left knee arthroplasty. No hardware fracture. No perihardware lucency to suggest loosening or infection. No osseous fracture. No abnormal soft tissue calcification. No significant joint effusion. XR/XR knee standing BI IMPRESSION: RIGHT KNEE: Total right knee arthroplasty without evidence of hardware complication. LEFT KNEE: Total left knee arthroplasty without evidence of hardware complication.
== END 2022-02-11 08:22 | disposition home or self-care (01) ==
LOC: HO.HOSX 08:21
PROVIDERS: Visit Provider Physician Assistant
DX: M25.561 Pain in right knee (principal); M25.562 Pain in left knee
CPT/HCPCS: 73560; 73565

== ENCOUNTER 2023-01-17 08:45 | Outpatient (REF) | payer OTHER, SELFPAY ==
[2023-01-17 09:01] LABS: MANUAL DIFF FLAG NO
[2023-01-17 09:23] LABS: Basophils Absolute Auto 0.1 X10*3/uL (0.0-0.2); Basophils Percent Auto 1.4 % (0-2); Eosinophils Absolute Auto 0.1 X10*3/uL (0.0-0.4); Eosinophils Percent Auto 2.1 % (0-4); Hematocrit 47.6 % (42.0-52.0); Hemoglobin 15.8 g/dl (14.0-18.0); Imm Gran Abs Auto 0.02 X10*3/uL (0.00-0.03); Imm Gran Pct Auto 0.3 % (0.0-0.4); Lymphocytes Absolute Auto 2.3 X10*3/uL (1.2-4.9); Lymphocytes Percent Auto 34.7 % (20-40); Mean Corpuscular HGB Conc 33.2 g/dl (31.0-36.0); Mean Corpuscular Hemoglobin 28.9 pg (27.0-33.0); Mean Corpuscular Volume 87.2 fL (80.0-98.0); Mean Platelet Volume 9.7 fL (9.4-12.4); Monocytes Absolute Auto 0.6 X10*3/uL (0.1-1.2); Monocytes Percent Auto 8.4 % (2-11); Neutrophils Absolute Auto 3.5 x10*3/uL (2.0-8.3); Neutrophils Percent Auto 53.1 % (45-73); Platelet Count 309 X10*3/uL (160-400); Red Blood Count 5.46 X10*6/uL (4.60-5.80); Red Cell Distribution Width 12.9 % (11.0-16.0); White Blood Count 6.6 X10*3/uL (4.8-10.8)
[2023-01-17 09:57] LABS: Estimated Average Glucose 108 mg/dL; Hemoglobin A1C 149.8349 umol/L; Hemoglobin A1c % 5.4 % (<6.0)
[2023-01-17 10:18] LABS: Alanine Aminotransferase 53 U/L (0-40); Albumin Level 4.3 g/dL (3.5-5.0); Alkaline Phosphatase 78 U/L (39-117); Anion Gap 11 (12-20); Aspartate Amino Transferase 35 U/L (5-37); Bilirubin Total 0.7 mg/dL (0.0-1.0); Blood Urea Nitrogen 8 mg/dL (9-16); Calcium 9.5 mg/dL (8.4-10.2); Carbon Dioxide 27 mmol/L (22-29); Chloride 105 mmol/L (96-108); Cholesterol 194 mg/dL (<200); Estimated Glomerular Filt Rate > 60; Glucose Fasting 107 mg/dL (60-99); HDL Cholesterol 56 mg/dL (>40); LDL Cholesterol Calculated 109 mg/dL (<100); Potassium 4.1 mmol/L (3.3-5.1); Sodium 139 mmol/L (135-145); Total Protein 7.2 g/dL (6.5-8.0); Triglycerides 147 mg/dL (<150)
[2023-01-17 10:29] LABS: PSA,Total (Free>4and<10) 0.48 ng/mL (0.00-4.00)
== END 2023-01-17 08:46 | disposition home or self-care (01) ==
LOC: HO.LAB 08:45
PROVIDERS: PCP Internal Medicine; Visit Provider Internal Medicine
DX: Z00.00 Encounter for general adult medical examination without abnormal findings (principal); Z12.5 Encounter for screening for malignant neoplasm of prostate; I10 Essential (primary) hypertension
CPT/HCPCS: 36415; 80053; 80061; 83036; 84153; 85025

== ENCOUNTER 2023-04-03 07:31 | Outpatient (REF) | payer OTHER, SELFPAY ==
[2023-04-03 09:51] LABS: Alanine Aminotransferase 50 U/L (0-40); Albumin Level 4.3 g/dL (3.5-5.0); Alkaline Phosphatase 78 U/L (39-117); Anion Gap 11 (12-20); Aspartate Amino Transferase 31 U/L (5-37); Bilirubin Total 0.5 mg/dL (0.0-1.0); Blood Urea Nitrogen 12 mg/dL (9-16); Calcium 9.5 mg/dL (8.4-10.2); Carbon Dioxide 30 mmol/L (22-29); Chloride 104 mmol/L (96-108); Estimated Glomerular Filt Rate > 60; Glucose Fasting 106 mg/dL (60-99); Potassium 4.6 mmol/L (3.3-5.1); Sodium 140 mmol/L (135-145); Total Protein 7.1 g/dL (6.5-8.0)
== END 2023-04-03 07:32 | disposition home or self-care (01) ==
LOC: HO.LAB 07:31
PROVIDERS: PCP Internal Medicine; Visit Provider Internal Medicine
DX: I10 Essential (primary) hypertension (principal)
CPT/HCPCS: 36415; 80053

== ENCOUNTER 2023-04-06 08:02 | Outpatient (AMB) | payer OTHER, SELFPAY ==
--- NOTE | 2023-04-06 08:10 | MHC.PC.OV ---
Vital Signs 04/06/23 08:11 Height 6 ft 3 in Weight 273 lb BMI 34.1 BP 130/80 Blood Pressure Location Lt brachial Position Sitting Pulse 82 Pulse Source Pulse Oximeter Pulse Oximetry (%) 94 Oxygen Delivery Method Room Air Intake Visit Reasons: Discuss medication Allergies lisinopril Adverse Reaction (Intermediate, Verified 04/06/23 08:11) cough Medication List - Last Reconciled 04/06/23 by Kathe Edge MD acetaminophen 650 mg (2 x 325 mg) PO Q6H 30 days amlodipine 10 mg PO DAILY amoxicillin 2,000 mg (4 x 500 mg) PO DAILY aspirin 81 mg PO BID cholecalciferol (vitamin D3) (Vitamin D3) 25 mcg PO DAILY famotidine 20 mg PO BEDTIME metoprolol succinate ER 50 mg PO DAILY metoprolol succinate ER 25 mg PO DAILY multivitamin 1 tab PO DAILY Tobacco use date assessed: 04/06/23 HPI HPI Comments History of Present Illness Details Pt presents for PE. Pt c/o R heel pain worse when walking since October. HTN is controlled on meds. PFSH Medical History COVID-19 vaccine administered Hx of sciatica Arthritis Murmur Annual physical exam Normal colonoscopy GERD (gastroesophageal reflux disease) Primary osteoarthritis of knees, bilateral Hypertension Palpitations Surgical History H/O colonoscopy History of hand surgery H/O arthroscopic knee surgery Family History Mother Mental health disorder Father Stroke Maternal Aunt Substance use disorder Maternal Uncle Substance use disorder Social History Household Members: Family Housing: House Are you a primary career development coordinator/teacher to a significant other at home: No Do you presently have visiting nurse or other home services: No Alcohol intake: former Patient Tobacco Use Status: Never used Tobacco e-Cigarette/Vaping Use: Never Used Second Hand Smoke Exposure: No service: No Current occupational status: unemployed Current occupation: [employer] - Right Handed Cognitive needs: No Hearing needs: No Vision needs: Yes Questionnaire Thrive Questionnaire Date Thrive assessed: 07/08/21 YANNA-7 AMB Questionnaire YANNA-7 Date YANNA - 7 assessed: 07/08/21 Source: Developed by Drs. Rosalio Crow, Елена Carter, Vipin Epstein and colleagues, with an educational brad from [employer]. Review of Systems Const All systems reviewed & are unremarkable except as noted in HPI and below Reports no additional complaints Eyes Reports no additional complaints ENT Reports no additional complaints Card Reports no additional complaints Resp Reports no additional complaints GI Reports no additional complaints Reports no additional complaints Physical exam (Primary Care) Vital Signs: Last Vital Signs Pulse 82 04/06/23 08:11 BP 130/80 04/06/23 08:11 Pulse Ox 94 04/06/23 08:11 Oxygen Delivery Method Room Air 04/06/23 08:11 BMI result Body Mass Index 34.1 Tobacco/Smoking Status: Tobacco use Status Tobacco use date assessed 04/06/23 04/06/23 08:15 Patient Tobacco Use Status Never used Tobacco 04/06/23 08:15 e-Cigarette/Vaping Use Never Used 04/06/23 08:15 Thrive Assessment: Date of Thrive Assessment Date Thrive assessed 07/08/21 04/06/23 08:15 Const General: no acute distress HENMT Head: Yes normal to inspection Ears: hearing grossly normal bilaterally General nose exam: Normal external nose present Mouth: Normal oral and palatal mucosa present Throat: Yes posterior oropharynx normal Eyes General: appearance normal, both eyes and all related structures Neck Neck: Yes no lymphadenopathy and Yes supple Resp Effort & Inspection: normal respiratory effort Auscultation: clear to auscultation bilaterally Cardio Rhythm: regular rhythm Heart sounds: S1 normal heart sound present and S2 normal heart sound present GI Inspection: Yes normal to inspection Palpation (GI): Soft to palpation Percussion: Yes normal to percussion Auscultation: normal bowel sounds Extrem Other: Reproducible tenderness in the right heel, no soft tissue swelling erythema warmth General: Yes no clubbing, cyanosis or edema Assessment and Plan Assessment & Plan (1) Hypertension: Code(s): I10 - Essential (primary) hypertension Plan: Continue current medications (2) Annual physical exam: Code(s): Z00.00 - Encounter for general adult medical examination without abnormal findings Plan: Well-balanced diet regular physical activity weight loss discussed with the patient. He is up-to-date with a colonoscopy (3) Plantar fasciitis of right foot: Code(s): M72.2 - Plantar fascial fibromatosis Plan: Patient was given stretching exercises and was advised to wear shoe inserts. If the symptoms persist he will be referred to graphics software engineer Orders: Orders Comprehensive [place]. Panel Fast 6 Months I10 - Essential (primary) hypertension, Z00.00 - Encounter for general adult medical examination without abnormal findings Hemoglobin A1c 6 Months I10 - Essential (primary) hypertension, Z00.00 - Encounter for general adult medical examination without abnormal findings Medications: Discontinued metoprolol succinate ER Discontinued Reason: Doctor's Order 50 mg PO DAILY 90 tabs 3RF Coding Level of Care Code Est Pt Prev Care 40-64y(25184) Diagnoses Hypertension I10 Annual physical exam Z00.00 Plantar fasciitis of right foot M72.2
[2023-04-06 08:11] VITALS: BP 130/80; PULSE 82; O2SAT 94; BMI 34.1
== END 2023-04-06 09:03 | disposition home or self-care (01) ==
PROVIDERS: PCP Internal Medicine; Visit Provider Internal Medicine
DX: I10 Essential (primary) hypertension (principal); Z00.00 Encounter for general adult medical examination without abnormal findings; M72.2 Plantar fascial fibromatosis
CPT/HCPCS: 99396

== ENCOUNTER 2023-05-11 09:29 | Outpatient (AMB) | payer OTHER, SELFPAY ==
--- NOTE | 2023-05-11 10:26 | AM.OFFWIN_ITS ---
Intake Vital Signs 05/11/23 10:28 Height 6 ft 3 in Weight 122.924 kg BMI 33.9 BP 140/80 H Blood Pressure Location Lt brachial Position Sitting Pulse 92 Pulse Source Pulse Oximeter Temp 98.1 F Temp Source Temporal Artery Scan Pulse Oximetry (%) 96 Oxygen Delivery Method Room Air Intake Visit Reasons: EST/infected cyst on back(lobby) Intake Note: pt is here today for infected cyst on back started 1 week ago Patient Tobacco Use Status: Never used Tobacco Allergies lisinopril Adverse Reaction (Intermediate, Verified 05/11/23 10:46) cough Do you need a note to return to daycare/school/sports/work: Yes HPI HPI Comments History of Present Illness Details 63-year-old male presents with an absces s to his right upper back started a few days ago and has been progressively worsening. He is concerned it may be infected because it is red and warm. Reports uncomfortable. Denies fevers, chills, numbness, tingling. On exam there is a 3 cm x 3 cm fluctuant area overlying the right upper back /scapular region. Overlying erythema and warmth. Concerns for abscess with cellulitis. Unlikely erysipelas, necrotizing infection, systemic illness. Incision and drainage was done with lidocaine used as anesthetic, 1% injected to the affected area, verbal consent was obtained prior, large amount of purulence expressed. Successful incision and drainage. Patient to be started on Keflex. Educated patient on diagnosis and treatment plan, answered all question, patient verbalizes understanding. At this time patient will be discharged home, advised to return with new or worsening symptoms. Educated on worrisome signs and symptoms and when to return. At this time I feel comfortable discharge home. [facility] Medical History COVID-19 vaccine administered Hx of sciatica Arthritis Murmur Annual physical exam Normal colonoscopy GERD (gastroesophageal reflux disease) Primary osteoarthritis of knees, bilateral Hypertension Palpitations Surgical History H/O colonoscopy History of hand surgery H/O arthroscopic knee surgery Family History Mother Mental health disorder Father Stroke Maternal Aunt Substance use disorder Maternal Uncle Substance use disorder Social History Household Members: Family Housing: House Are you a primary care technician to a significant other at home: No Do you presently have visiting nurse or other home services: No Alcohol intake: former Comment: medicated, see MAR Patient Tobacco Use Status: Never used Tobacco e-Cigarette/Vaping Use: Never Used Second Hand Smoke Exposure: No service: No Current occupational status: unemployed Current occupation: [employer] - [employer]ed Cognitive needs: No Hearing needs: No Vision needs: Yes Review of Systems Const Details: Constitutional : No Weight loss, No Fever, No Chills, No Fatigue, No Malaise ENT/Mouth : No sore throat, No Rhinorrhea Eyes: No Eye Pain, No Swelling, No Redness Cardiovascular : No Chest Pain, No SOB, No Dyspnea on Exertion, No Orthopnea, No Edema, No Palpitations Respiratory : No Cough, No Sputum, No Wheezing Gastrointestinal : No Nausea, No Vomiting, No Diarrhea, No Constipation, No abdominal Pain, No Hematochezia, No Melena Genitourinary : No Dysuria, No Urinary Frequency, No Hematuria, Musculoskeletal : No joint pain, No Myalgias, No Joint Swelling Skin : No Skin Lesions, No rash, + abscess Neuro : No Weakness, No Numbness, No Dizziness, No Headache Psych : No Anxiety/Panic, No Depression All other systems reviewed and are negative All systems reviewed & are unremarkable except as noted in HPI and below Physical Exam Vital Signs: Last Vital Signs Temp 98.1 F 05/11/23 10:28 Pulse 92 05/11/23 10:28 BP 140/80 H 05/11/23 10:28 Pulse Ox 96 05/11/23 10:28 Oxygen Delivery Method Room Air 05/11/23 10:28 BMI result Body Mass Index 33.9 vss Appearance: Alert.? Oriented X3.? No acute distress.? Head: Normocephalic, atraumatic, no step-offs or deformities Eyes: Pupils equal, round and reactive to light.? Neck: Normal inspection.? Neck supple.? CVS: Pulses normal.? Respiratory: No respiratory distress.? Skin: Skin warm and dry.? Normal skin color.? Normal skin turgor.?3 cm x 3 cm fluctuant area overlying the right upper back /scapular region. Overlying erythema and warmth. Extremities: No lower extremity edema.? No calf ttp. 5/5 strength to bilateral upper and lower extremities Neuro: Oriented X 3.? No motor deficit.? No sensory deficit. CN 2-12 intact Assessment & Plan Assessment & Plan (1) Abscess: Code(s): L02.91 - Cutaneous abscess, unspecified Plan Take your medications as prescribed. If you were prescribed antibiotics today, it is important that you take your medication to their entirety, do not skip any doses, do not finish them early. Follow-up with your primary care provider this week. Return to the emergency department with new or worsening symptoms. Such as fevers, chills, chest pain, shortness of breath, nausea, vomiting, dizziness, headache, vision changes, lethargy In case of emergency call 911 Medications: New cephalexin 500 mg PO QID 7 days 28 caps 0RF Coding Level of Care Code Est Pt Level 3 (60732) Diagnoses Abscess L02.91
[2023-05-11 10:28] VITALS: BP 140/80; PULSE 92; TEMP 36.7; O2SAT 96; BMI 33.9
== END 2023-05-11 11:44 | disposition home or self-care (01) ==
PROVIDERS: PCP Internal Medicine; Visit Provider Physician Assistant
DX: L02.91 Cutaneous abscess, unspecified (principal)
CPT/HCPCS: 99213

== ENCOUNTER 2024-01-07 09:59 | Outpatient (AMB) | payer OTHER, SELFPAY ==
[2024-01-07 10:01] VITALS: BP 118/70; PULSE 86; O2SAT 97; BMI 34.5
--- NOTE | 2024-01-07 10:01 | MHC.PC.OV ---
Vital Signs 01/07/24 10:01 Height 6 ft 3 in Weight 276 lb BMI 34.5 BP 118/70 Blood Pressure Location Rt brachial Position Sitting Pulse 86 Pulse Source Pulse Oximeter Pulse Oximetry (%) 97 Oxygen Delivery Method Room Air Intake Visit Reasons: rsch from 12/15 Intake Note: Pt is here today for a follow up visit on foot pain and BP. Allergies lisinopril Adverse Reaction (Intermediate, Verified 01/07/24 10:05) cough Medication List - Last Reconciled 01/07/24 by Kathe Edge MD acetaminophen 650 mg (2 x 325 mg) PO Q6H 30 days amlodipine 10 mg PO DAILY cholecalciferol (vitamin D3) (Vitamin D3) 25 mcg PO DAILY famotidine 20 mg PO BEDTIME PRN metoprolol succinate ER 25 mg PO DAILY multivitamin 1 tab PO DAILY Tobacco use date assessed: 01/07/24 Dental Screening Dental Screen Date: 01/07/24 Did you have a dental visit in the last 12 months?: Yes Did you have a dental problem in the last 6 months where you did not have access to dental care?: No Was dental information given to patient?: Patient has dentist HPI rsch from 12/15 HPI Details Patient presents for the follow-up on hypertension controlled on current medications. He gained 20 lb since the last year because he has been working sitting most of the day and eating more carbohydrates. [facility] Medical History COVID-19 vaccine administered Hx of sciatica Arthritis Murmur Annual physical exam Normal colonoscopy GERD (gastroesophageal reflux disease) Primary osteoarthritis of knees, bilateral Hypertension Palpitations Surgical History H/O colonoscopy History of hand surgery H/O arthroscopic knee surgery Family History Mother Mental health disorder Father Stroke Maternal Aunt Substance use disorder Maternal Uncle Substance use disorder Social History Household Members: Family Housing: House Are you a primary health care marketing specialist to a significant other at home: No Do you presently have visiting nurse or other home services: No Alcohol intake: former Comment: medicated, see MAR Patient Tobacco Use Status: Never used Tobacco e-Cigarette/Vaping Use: Never Used Second Hand Smoke Exposure: No service: No Current occupational status: unemployed Current occupation: [employer] - Right Handed Cognitive needs: No Hearing needs: No Vision needs: Yes Questionnaire PHQ-9 Over the last 2 weeks, how often have you been bothered by any of the following problems? 1. Little interest or pleasure in doing things: not at all 2. Feeling down, depressed, or hopeless: not at all 3. Trouble falling or staying asleep, or sleeping too much: not at all 4. Feeling tired or having little energy: not at all 5. Poor appetite or overeating: not at all 6. Feeling bad about yourself - or that you are a failure or have let yourself or your family down: not at all 7. Trouble concentrating on things, such as reading the newspaper or watching television: not at all 8. Moving or speaking so slowly that other people could have noticed. Or the opposite - being so fidgety or restless that you have been moving around a lot more than usual: not at all 9. Thoughts that you would be better off or of hurting yourself in some way: not at all Total score: 0 Depression Screening Interpretation: Negative Depression Screening Done: Yes 77242 - PHQ-9 Billing: Yes Source: Developed by Drs. Rosalio Crow, Елена Carter, Vipin Epstein and colleagues, with an educational brad from [employer]. Thrive Questionnaire Date Thrive assessed: 01/07/24 I am a: Patient What is your living situation today?: I have a steady place to live Within the past 12 months, did the food you bought not last and you didn't have the money to get more?: I choose not to answer this question Within the past 12 months, did you worry whether your food would run out before you got money to buy more?: I choose not to answer this question Do you have trouble paying for medicines?: I choose not to answer this question Do you have trouble getting transportation to medical appointments?: I choose not to answer this question Do you have trouble paying your heating and electricity bill?: I choose not to answer this question Do you have trouble taking care of your child, family member or friend?: I choose not to answer this question Do you have trouble with day-to-day activities such as bathing, preparing meals, shopping, managing finances, etc.?: I choose not to answer this question Are you currently unemployed and looking for a job?: I choose not to answer this question Are you interested in more education?: I choose not to answer this question Please select the resources that you would like help with: None Currently or been in a relationship where the following occur: I choose not to answer THRIVE Score: 0 AUDIT C Alcohol Use Questionnaire (AUDIT-C) 1. How often do you have a drink containing alcohol?: Never 3. How often do you have six or more drinks on one occasion?: Never Total Score: 0 YANNA-7 AMB Questionnaire YANNA-7 Date YANNA - 7 assessed: 01/07/24 Feeling nervous, anxious, or on edge: 0 = Not at all Not being able to stop or control worryin = Not at all Worrying too much about different things: 0 = Not at all Trouble relaxin = Not at all Being so restless that it is hard to sit still: 0 = Not at all Becoming easily annoyed or irritable: 0 = Not at all Feeling afraid as if something awful might happen: 0 = Not at all Total YANNA-7 score (0-4 normal; 5-9 mild; 10-14 moderate; 15-21 severe): 0 Source: Developed by Drs. Rosalio Crow, Елена Carter, Vipin Epstein and colleagues, with an educational brad from [employer]. YANNA-7 Assessment Billing YANNA-7 Assessment Tool: YANNA-7 Assessment 10886 Review of Systems Const All systems reviewed & are unremarkable except as noted in HPI and below Eyes Reports no additional complaints ENT Reports no additional complaints Resp Reports no additional complaints GI Reports no additional complaints Reports no additional complaints Musc Reports no additional complaints Physical exam (Primary Care) Vital Signs: Last Vital Signs Pulse 86 01/07/24 10:01 BP 118/70 01/07/24 10:01 Pulse Ox 97 01/07/24 10:01 Oxygen Delivery Method Room Air 01/07/24 10:01 BMI result Body Mass Index 34.5 Tobacco/Smoking Status: Tobacco use Status Tobacco use date assessed 01/07/24 01/07/24 10:07 Patient Tobacco Use Status Never used Tobacco 01/07/24 10:07 e-Cigarette/Vaping Use Never Used 01/07/24 10:02 PHQ-9: PHQ-9 Score PHQ-9: Total score 0 01/07/24 10:07 Depression Screening Interpretation: Negative Thrive Assessment: Date of Thrive Assessment Date Thrive assessed 01/07/24 01/07/24 10:07 Currently or been in a relationship where the following occur: I choose not to answer Const General: no acute distress HENMT Head: Yes normal to inspection Ears: hearing grossly normal bilaterally Face and sinus: Yes normal facial exam Neck Neck: Yes supple Resp Effort & Inspection: normal respiratory effort Auscultation: clear to auscultation bilaterally Cardio Rhythm: regular rhythm Heart sounds: S1 normal heart sound present and S2 normal heart sound present GI Inspection: Yes normal to inspection Palpation (GI): Soft to palpation Assessment and Plan Assessment & Plan (1) Hypertension: Code(s): I10 - Essential (primary) hypertension Plan: cont meds (2) Annual physical exam: Code(s): Z00.00 - Encounter for general adult medical examination without abnormal findings (3) Overweight: Code(s): E66.3 - Overweight Plan: Increase physical activity decrease caloric intake and weight loss discussed with the patient he will return for physical in March with fasting labs before Orders: Orders UA w Microscopic 3 Months I10 - Essential (primary) hypertension, Z00.00 - Encounter for general adult medical examination without abnormal findings Hemoglobin A1c 3 Months I10 - Essential (primary) hypertension, Z00.00 - Encounter for general adult medical examination without abnormal findings Comprehensive [place]. Panel Fast 3 Months I10 - Essential (primary) hypertension, Z00.00 - Encounter for general adult medical examination without abnormal findings Complete Blood Count Auto Diff 3 Months I10 - Essential (primary) hypertension, Z00.00 - Encounter for general adult medical examination without abnormal findings Lipid Panel 3 Months I10 - Essential (primary) hypertension, Z00.00 - Encounter for general adult medical examination without abnormal findings PSA,Total (Free>4and<10) 3 Months I10 - Essential (primary) hypertension, Z00.00 - Encounter for general adult medical examination without abnormal findings Medications: Changed From famotidine 20 mg PO BEDTIME 90 tabs 3RF To famotidine 20 mg PO BEDTIME PRN Coding Level of Care Code Est Pt Level 3 (05465) Diagnoses Hypertension I10 Annual physical exam Z00.00 Overweight E66.3 Additional Codes YANNA-7 Assessment Billing - YANNA-7 Assessment Tool: YANNA-7 Assessment 90406 ([id number])
== END 2024-01-07 11:07 | disposition home or self-care (01) ==
PROVIDERS: PCP Internal Medicine; Visit Provider Internal Medicine
DX: I10 Essential (primary) hypertension (principal); E66.3 Overweight; Z68.34 Body mass index [BMI] 34.0-34.9, adult
CPT/HCPCS: 99213

== ENCOUNTER 2024-04-07 07:23 | Outpatient (REF) | payer OTHER, SELFPAY ==
[2024-04-07 07:36] LABS: MANUAL DIFF FLAG NO
[2024-04-07 09:09] LABS: Basophils Absolute Auto 0.1 X10*3/uL (0.0-0.2); Eosinophils Absolute Auto 0.1 X10*3/uL (0.0-0.4); Eosinophils Percent Auto 1.7 % (0-4); Hematocrit 49.3 % (42.0-52.0); Hemoglobin 16.6 g/dl (14.0-18.0); Imm Gran Abs Auto 0.03 X10*3/uL (0.00-0.03); Imm Gran Pct Auto 0.4 % (0.0-0.4); Lymphocytes Absolute Auto 2.2 X10*3/uL (1.2-4.9); Lymphocytes Percent Auto 27.8 % (20-40); Mean Corpuscular HGB Conc 33.7 g/dl (31.0-36.0); Mean Corpuscular Hemoglobin 28.7 pg (27.0-33.0); Mean Corpuscular Volume 85.3 fL (80.0-98.0); Mean Platelet Volume 9.9 fL (9.4-12.4); Monocytes Absolute Auto 0.7 X10*3/uL (0.1-1.2); Monocytes Percent Auto 8.3 % (2-11); Neutrophils Absolute Auto 4.8 x10*3/uL (2.0-8.3); Neutrophils Percent Auto 60.8 % (45-73); Platelet Count 337 X10*3/uL (160-400); Red Blood Count 5.78 X10*6/uL (4.60-5.80); White Blood Count 7.8 X10*3/uL (4.8-10.8)
[2024-04-07 09:24] LABS: Estimated Average Glucose 123 mg/dL; Hemoglobin A1C 172.8658 umol/L; Hemoglobin A1c % 5.9 % (<6.0); Total Hemoglobin (HGBA1C) 4209.1565 umol/L
[2024-04-07 09:33] LABS: Alanine Aminotransferase 52 U/L (0-40); Albumin Level 4.3 g/dL (3.5-5.0); Alkaline Phosphatase 82 U/L (39-117); Anion Gap 15 (12-20); Appearance Urine Clear; Aspartate Amino Transferase 37 U/L (5-37); Bilirubin Total 0.8 mg/dL (0.0-1.0); Blood Urea Nitrogen 11 mg/dL (9-16); Calcium 8.8 mg/dL (8.4-10.2); Carbon Dioxide 24 mmol/L (22-29); Chloride 102 mmol/L (96-108); Cholesterol 196 mg/dL (<200); Color Urine Yellow; Estimated Glomerular Filt Rate > 60; Glucose Fasting 120 mg/dL (60-99); Glucose Urine UA Negative (Negative); HDL Cholesterol 58 mg/dL (>40); LDL Cholesterol Calculated 117 mg/dL (<100); Leukocyte Esterase Urine Negative (Negative); Nitrite Urine Negative (Negative); PH 6.5 (5.0-9.0); Potassium 3.9 mmol/L (3.3-5.1); Sodium 137 mmol/L (135-145); Specific Gravity - Urine 1.015 (1.005-1.025); Total Protein 7.2 g/dL (6.5-8.0); Triglycerides 107 mg/dL (<150); Urine Blood Negative (Negative); Urine Ketones Negative (Negative); Urine Protein Negative (Neg-Trace)
[2024-04-07 09:40] LABS: Bacteria Urine None Seen (None Seen); Hyaline Casts Urine 0-2 /LPF (0-2); RBC Urine 0-2 /HPF (0-2); Squamous Epithelial Cell Urine 0-2 /HPF (0-2); WBC Urine 0-5 /HPF (0-5)
[2024-04-07 09:55] LABS: PSA,Total (Free>4and<10) 0.64 ng/mL (0.00-4.00)
== END 2024-04-07 07:24 | disposition home or self-care (01) ==
LOC: HO.LAB 07:23
PROVIDERS: PCP Internal Medicine; Visit Provider Internal Medicine
DX: Z00.00 Encounter for general adult medical examination without abnormal findings (principal); I10 Essential (primary) hypertension
CPT/HCPCS: 36415; 80053; 80061; 81001; 83036; 84153; 85025

== ENCOUNTER 2024-04-11 11:55 | Outpatient (AMB) | payer OTHER, SELFPAY ==
--- NOTE | 2024-04-11 12:00 | A.OFFPC_ITS ---
Vital Signs 04/11/24 12:01 Height 6 ft 3 in Weight 280 lb BMI 35.0 BP 132/76 Blood Pressure Location Lt brachial Position Sitting Pulse 95 Pulse Source Pulse Oximeter Pulse Oximetry (%) 96 Oxygen Delivery Method Room Air Intake Visit Reasons: Annual P.E Intake Note: Pt is here today for PE. Allergies lisinopril Adverse Reaction (Intermediate, Verified 04/11/24 12:02) cough Medication List - Last Reconciled 04/11/24 by Kathe Edge MD acetaminophen 650 mg (2 x 325 mg) PO Q6H 30 days amlodipine 10 mg PO DAILY cholecalciferol (vitamin D3) (Vitamin D3) 25 mcg PO DAILY famotidine 20 mg PO BEDTIME PRN metoprolol succinate ER 25 mg PO DAILY multivitamin 1 tab PO DAILY Tobacco use date assessed: 04/11/24 Dental Screening Dental Screen Date: 04/11/24 Did you have a dental visit in the last 12 months?: Yes Did you have a dental problem in the last 6 months where you did not have access to dental care?: No Was dental information given to patient?: Patient has dentist HPI Annual P.E HPI Details Pt presents for PE. PFSH Medical History COVID-19 vaccine administered Hx of sciatica Arthritis Murmur Annual physical exam Normal colonoscopy GERD (gastroesophageal reflux disease) Primary osteoarthritis of knees, bilateral Hypertension Palpitations Surgical History H/O colonoscopy History of hand surgery H/O arthroscopic knee surgery Family History Mother Mental health disorder Father Stroke Maternal Aunt Substance use disorder Maternal Uncle Substance use disorder Social History Household Members: Family Housing: House Are you a primary daytime caregiver to a significant other at home: No Do you presently have visiting nurse or other home services: No Alcohol intake: former Comment: medicated, see MAR Patient Tobacco Use Status: Never used Tobacco e-Cigarette/Vaping Use: Never Used Second Hand Smoke Exposure: No service: No Current occupational status: unemployed Current occupation: [employer] - [employer] Cognitive needs: No Hearing needs: No Vision needs: Yes Questionnaire Thrive Questionnaire Date Thrive assessed: 01/07/24 I am a: Patient What is your living situation today?: I have a steady place to live Within the past 12 months, did the food you bought not last and you didn't have the money to get more?: I choose not to answer this question Within the past 12 months, did you worry whether your food would run out before you got money to buy more?: I choose not to answer this question Do you have trouble paying for medicines?: I choose not to answer this question Do you have trouble getting transportation to medical appointments?: I choose not to answer this question Do you have trouble paying your heating and electricity bill?: I choose not to answer this question Do you have trouble taking care of your child, family member or friend?: I choose not to answer this question Do you have trouble with day-to-day activities such as bathing, preparing meals, shopping, managing finances, etc.?: I choose not to answer this question Are you currently unemployed and looking for a job?: I choose not to answer this question Are you interested in more education?: I choose not to answer this question Please select the resources that you would like help with: None Currently or been in a relationship where the following occur: I choose not to answer THRIVE Score: 0 AUDIT C Alcohol Use Questionnaire (AUDIT-C) 1. How often do you have a drink containing alcohol?: Never 3. How often do you have six or more drinks on one occasion?: Never Total Score: 0 YANNA-7 AMB Questionnaire YANNA-7 Date YANNA - 7 assessed: 01/07/24 Source: Developed by Drs. Rosalio Crow, Елена Carter, Vipin Epstein and colleagues, with an educational brad from [email or web address]. Review of Systems Const All systems reviewed & are unremarkable except as noted in HPI and below Reports no additional complaints Eyes Reports no additional complaints ENT Reports no additional complaints Card Reports no additional complaints Resp Reports no additional complaints GI Reports no additional complaints Reports no additional complaints Physical exam (Primary Care) Vital Signs: Last Vital Signs Pulse 95 04/11/24 12:01 BP 132/76 04/11/24 12:01 Pulse Ox 96 04/11/24 12:01 Oxygen Delivery Method Room Air 04/11/24 12:01 BMI result Body Mass Index 35.0 Tobacco/Smoking Status: Tobacco use Status Tobacco use date assessed 04/11/24 04/11/24 12:04 Patient Tobacco Use Status Never used Tobacco 04/11/24 12:04 e-Cigarette/Vaping Use Never Used 04/11/24 12:04 Thrive Assessment: Date of Thrive Assessment Date Thrive assessed 01/07/24 04/11/24 12:04 Currently or been in a relationship where the following occur: I choose not to answer Const General: no acute distress HENMT Head: Yes normal to inspection Ears: hearing grossly normal bilaterally Face and sinus: Yes normal facial exam Throat: Yes posterior oropharynx normal Eyes General: appearance normal, both eyes and all related structures Neck Neck: Yes no lymphadenopathy and Yes supple Resp Effort & Inspection: normal respiratory effort Auscultation: clear to auscultation bilaterally Cardio Rhythm: regular rhythm Heart sounds: S1 normal heart sound present and S2 normal heart sound present GI Inspection: Yes normal to inspection Palpation (GI): Soft to palpation Percussion: Yes normal to percussion Auscultation: normal bowel sounds Coding Level of Care Code Est Pt Prev Care 40-64y(63123) Diagnoses Hypertension I10 Annual physical exam Z00.00 Overweight E66.3 Hyperglycemia R73.9 Assessment & Plan Assessment & Plan (1) Hypertension: Code(s): I10 - Essential (primary) hypertension Category: Medical Plan: cont meds (2) Annual physical exam: Code(s): Z00.00 - Encounter for general adult medical examination without abnormal findings Category: Medical Plan: Well-balanced diet regular physical activity weight loss discussed with the patient. He is due for colonoscopy in 2025 (3) Overweight: Comment: Patient gained 40 lb since 2020 Code(s): E66.3 - Overweight Category: Medical Plan: Decreasing caloric intake increase physical activity weight loss discussed with the patient follow-up in 6 months with a fasting labs before (4) Hyperglycemia: Code(s): R73.9 - Hyperglycemia, unspecified Category: Medical Plan: A1c is 5.9, ADA diet increase exercise weight loss discussed with the patient Orders: Orders Comprehensive [place]. Panel Fast 6 Months E66.3 - Overweight, I10 - Essential (primary) hypertension, R73.9 - Hyperglycemia, unspecified, Z00.00 - Encounter for general adult medical examination without abnormal findings Lipid Panel 6 Months E66.3 - Overweight, I10 - Essential (primary) hypertension, R73.9 - Hyperglycemia, unspecified, Z00.00 - Encounter for general adult medical examination without abnormal findings Complete Blood Count Auto Diff 6 Months E66.3 - Overweight, I10 - Essential (primary) hypertension, R73.9 - Hyperglycemia, unspecified, Z00.00 - Encounter for general adult medical examination without abnormal findings Hemoglobin A1c 6 Months E66.3 - Overweight, I10 - Essential (primary) hypertension, R73.9 - Hyperglycemia, unspecified, Z00.00 - Encounter for general adult medical examination without abnormal findings Microalbumin, Random (w Creat) 6 Months E66.3 - Overweight, I10 - Essential (primary) hypertension, R73.9 - Hyperglycemia, unspecified, Z00.00 - Encounter for general adult medical examination without abnormal findings
[2024-04-11 12:01] VITALS: BP 132/76; PULSE 95; O2SAT 96; BMI 35.0
== END 2024-04-11 12:30 | disposition home or self-care (01) ==
PROVIDERS: PCP Internal Medicine; Visit Provider Internal Medicine
DX: I10 Essential (primary) hypertension (principal); Z00.00 Encounter for general adult medical examination without abnormal findings; E66.3 Overweight; R73.9 Hyperglycemia, unspecified

== ENCOUNTER → 2024-04-11 11:55 | Outpatient (BNVA) | payer OTHER, SELFPAY | PROVIDERS: PCP Internal Medicine; Visit Provider Internal Medicine | DX: Z00.00 Encounter for general adult medical examination without abnormal findings (principal); I10 Essential (primary) hypertension; E66.3 Overweight; R73.9 Hyperglycemia, unspecified | CPT/HCPCS: 99396 ==

== ENCOUNTER 2025-05-01 08:33 | Outpatient (AMB) | payer OTHER, SELFPAY ==
[2025-05-01 08:36] VITALS: BP 110/62; PULSE 98; RESP 17; TEMP 36.6; O2SAT 97; BMI 33.4
--- NOTE | 2025-05-01 08:36 | A.OFFPC_ITS ---
Vital Signs 05/01/25 08:36 Height 6 ft 3 in Weight 267 lb BMI 33.4 BP 110/62 Blood Pressure Location Rt brachial Position Sitting Respiration 17 Pulse 98 Pulse Source Pulse Oximeter Temp 97.8 F Temp Source Oral Pulse Oximetry (%) 97 Oxygen Delivery Method Room Air Intake Visit Reasons: Annual P.E Intake Note: Pt is here today for PE. Allergies lisinopril Adverse Reaction (Intermediate, Verified 05/01/25 08:38) cough Medication List - Last Reconciled 05/01/25 by Kathe Edge MD acetaminophen 650 mg (2 x 325 mg) PO Q6H 30 days amlodipine 10 mg PO DAILY cholecalciferol (vitamin D3) (Vitamin D3) 25 mcg PO DAILY famotidine 20 mg PO BEDTIME PRN metoprolol succinate ER 25 mg PO DAILY multivitamin 1 tab PO DAILY Tobacco use date assessed: 05/01/25 Fall risk assessment: No Falls in past year Last assessed Fall Risk: 05/01/25 Dental Screening Dental Screen Date: 05/01/25 Did you have a dental visit in the last 12 months?: Yes Did you have a dental problem in the last 6 months where you did not have access to dental care?: No Was dental information given to patient?: Patient has dentist HPI Annual P.E HPI Details Pt presents for PE. [facility] Medical History (Updated 05/01/25 @ 09:08 by Kathe Edge MD) COVID-19 vaccine administered Hx of sciatica Arthritis Murmur Annual physical exam Normal colonoscopy GERD (gastroesophageal reflux disease) Primary osteoarthritis of knees, bilateral Hypertension Palpitations Surgical History H/O colonoscopy History of hand surgery H/O arthroscopic knee surgery Family History Mother Mental health disorder Father Stroke Maternal Aunt Substance use disorder Maternal Uncle Substance use disorder Social History Household Members: Family Housing: House Are you a primary pet care worker to a significant other at home: No Do you presently have visiting nurse or other home services: No Alcohol intake: former Comment: medicated, see MAR Patient Tobacco Use Status: Never used Tobacco e-Cigarette/Vaping Use: Never Used Second Hand Smoke Exposure: No service: No Current occupational status: unemployed Current occupation: [employer] Cognitive needs: No Hearing needs: No Vision needs: Yes Questionnaire PHQ-9 Over the last 2 weeks, how often have you been bothered by any of the following problems? 1. Little interest or pleasure in doing things: not at all 2. Feeling down, depressed, or hopeless: not at all 3. Trouble falling or staying asleep, or sleeping too much: not at all 4. Feeling tired or having little energy: not at all 5. Poor appetite or overeating: not at all 6. Feeling bad about yourself - or that you are a failure or have let yourself or your family down: not at all 7. Trouble concentrating on things, such as reading the newspaper or watching television: not at all 8. Moving or speaking so slowly that other people could have noticed. Or the opposite - being so fidgety or restless that you have been moving around a lot more than usual: not at all 9. Thoughts that you would be better off or of hurting yourself in some way: not at all Total score: 0 Depression Screening Interpretation: Negative Depression Screening Done: Yes 32990 - PHQ-9 Billing: Yes Source: Developed by Drs. Rosalio Crow, Елена Carter, Vipin Epstein and colleagues, with an educational brad from [employer]. Thrive Questionnaire Date Thrive assessed: 05/01/25 I am a: Patient What is your living situation today?: I have a steady place to live Within the past 12 months, did the food you bought not last and you didn't have the money to get more?: Never true Within the past 12 months, did you worry whether your food would run out before you got money to buy more?: Never true Do you have trouble paying for medicines?: No Do you have trouble getting transportation to medical appointments?: No Do you have trouble paying your heating and electricity bill?: No Do you have trouble taking care of your child, family member or friend?: No Do you have trouble with day-to-day activities such as bathing, preparing meals, shopping, managing finances, etc.?: No Are you currently unemployed and looking for a job?: No Are you interested in more education?: No Please select the resources that you would like help with: None Currently or been in a relationship where the following occur: I choose not to answer THRIVE Score: 0 AUDIT C Alcohol Use Questionnaire (AUDIT-C) 1. How often do you have a drink containing alcohol?: Never 3. How often do you have six or more drinks on one occasion?: Never Total Score: 0 YANNA-7 AMB Questionnaire YANNA-7 Date YNANA - 7 assessed: 05/01/25 Feeling nervous, anxious, or on edge: 0 = Not at all Not being able to stop or control worryin = Not at all Worrying too much about different things: 0 = Not at all Trouble relaxin = Not at all Being so restless that it is hard to sit still: 0 = Not at all Becoming easily annoyed or irritable: 0 = Not at all Feeling afraid as if something awful might happen: 0 = Not at all Total YANNA-7 score (0-4 normal; 5-9 mild; 10-14 moderate; 15-21 severe): 0 Source: Developed by Drs. Rosalio Crow, Елена Carter, Vipin Epstein and colleagues, with an educational brad from [employer]. YANNA-7 Assessment Billing YANNA-7 Assessment Tool: YANNA-7 Assessment 06012 Review of Systems Const All systems reviewed & are unremarkable except as noted in HPI and below Eyes Reports no additional complaints ENT Reports no additional complaints Card Reports no additional complaints Resp Reports no additional complaints GI Reports no additional complaints Reports no additional complaints Physical exam (Primary Care) Vital Signs: Last Vital Signs Temp 97.8 F 05/01/25 08:36 Pulse 98 05/01/25 08:36 Resp 17 05/01/25 08:36 BP 110/62 05/01/25 08:36 Pulse Ox 97 05/01/25 08:36 Oxygen Delivery Method Room Air 05/01/25 08:36 BMI result Body Mass Index 33.4 Tobacco/Smoking Status: Tobacco use Status Tobacco use date assessed 05/01/25 05/01/25 08:41 Patient Tobacco Use Status Never used Tobacco 05/01/25 08:41 e-Cigarette/Vaping Use Never Used 05/01/25 08:41 PHQ-9: PHQ-9 Score PHQ-9: Total score 0 05/01/25 08:57 Depression Screening Interpretation: Negative Thrive Assessment: Date of Thrive Assessment Date Thrive assessed 05/01/25 05/01/25 08:41 Currently or been in a relationship where the following occur: I choose not to answer Const General: no acute distress HENMT Head: Yes normal to inspection Ears: TM's normal bilaterally Face and sinus: Yes normal facial exam Mouth: Normal oral and palatal mucosa present Eyes General: appearance normal, both eyes and all related structures Neck Neck: Yes no lymphadenopathy and Yes supple Resp Effort & Inspection: normal respiratory effort Auscultation: clear to auscultation bilaterally Cardio Rhythm: regular rhythm Heart sounds: S1 normal heart sound present and S2 normal heart sound present GI Inspection: Yes normal to inspection Palpation (GI): Soft to palpation Percussion: Yes normal to percussion Auscultation: normal bowel sounds Coding Level of Care Code Est Pt Prev Care 40-64y(41316) Diagnoses Hypertension I10 Annual physical exam Z00.00 Hyperglycemia R73.9 Murmur R01.1 Additional Codes YANNA-7 Assessment Billing - YANNA-7 Assessment Tool: YANNA-7 Assessment 63225 ([id number]) PHQ-9 - 39423 - PHQ-9 Billing: Yes ([id number]) Assessment & Plan Assessment & Plan (1) Hypertension: Code(s): I10 - Essential (primary) hypertension Category: Medical Plan: Continue current medications (2) Annual physical exam: Code(s): Z00.00 - Encounter for general adult medical examination without abnormal findings Category: Medical Plan: Well-balanced diet regular physical activity discussed with the patient. He will return for fasting blood work. Patient is due for repeat colonoscopy next year with Dr. Swan (3) Hyperglycemia: Code(s): R73.9 - Hyperglycemia, unspecified Category: Medical Plan: Check A1c ADA diet regular exercise weight loss discussed with the patient (4) Murmur: Comment: ECHO 2018 nl EF, mild Pul reg Code(s): R01.1 - Cardiac murmur, unspecified Category: Medical Plan: Obtain echocardiogram Orders: Orders Complete Blood Count Auto Diff Today I10 - Essential (primary) hypertension, R73.9 - Hyperglycemia, unspecified, Z00.00 - Encounter for general adult medical examination without abnormal findings Lipid Panel Today I10 - Essential (primary) hypertension, R73.9 - Hyperglycemia, unspecified, Z00.00 - Encounter for general adult medical examination without abnormal findings Microalbumin, Random (w Creat) Today I10 - Essential (primary) hypertension, R73.9 - Hyperglycemia, unspecified, Z00.00 - Encounter for general adult medical examination without abnormal findings CA echo transthoracic complete Today R01.1 - Cardiac murmur, unspecified Complete Blood Count Auto Diff 1 Year I10 - Essential (primary) hypertension, R73.9 - Hyperglycemia, unspecified PSA,Total (Free>4and<10) 1 Year I10 - Essential (primary) hypertension, R73.9 - Hyperglycemia, unspecified Microalbumin, Random (w Creat) 1 Year I10 - Essential (primary) hypertension, R73.9 - Hyperglycemia, unspecified Comprehensive [place]. Panel Fast Today I10 - Essential (primary) hypertension, R73.9 - Hyperglycemia, unspecified, Z00.00 - Encounter for general adult medical examination without abnormal findings Hemoglobin A1c Today I10 - Essential (primary) hypertension, R73.9 - Hyperglycemia, unspecified, Z00.00 - Encounter for general adult medical examination without abnormal findings PSA,Total (Free>4and<10) Today I10 - Essential (primary) hypertension, R73.9 - Hyperglycemia, unspecified, Z00.00 - Encounter for general adult medical examination without abnormal findings UA w Microscopic Today I10 - Essential (primary) hypertension, R73.9 - Hyperglycemia, unspecified, Z00.00 - Encounter for general adult medical examination without abnormal findings Comprehensive [place]. Panel Fast 1 Year I10 - Essential (primary) hypertension, R73.9 - Hyperglycemia, unspecified Hemoglobin A1c 1 Year I10 - Essential (primary) hypertension, R73.9 - Hyperglycemia, unspecified Lipid Panel 1 Year I10 - Essential (primary) hypertension, R73.9 - Hyperglycemia, unspecified UA w Microscopic 1 Year I10 - Essential (primary) hypertension, R73.9 - Hyperglycemia, unspecified Referrals Gastroenterology Referral Z00.00 - Encounter for general adult medical examination without abnormal findings Medications: New vardenafil 20 mg PO DAILY 20 tabs 3RF
== END 2025-05-01 13:24 | disposition home or self-care (01) ==
LOC: HO.HMCC 08:34
PROVIDERS: PCP Internal Medicine; Visit Provider Internal Medicine
DX: Z00.00 Encounter for general adult medical examination without abnormal findings (principal); I10 Essential (primary) hypertension; R73.9 Hyperglycemia, unspecified; R01.1 Cardiac murmur, unspecified

== ENCOUNTER → 2025-05-01 08:33 | Outpatient (BNVA) | payer OTHER, SELFPAY | PROVIDERS: PCP Internal Medicine; Visit Provider Internal Medicine | DX: Z00.00 Encounter for general adult medical examination without abnormal findings (principal); I10 Essential (primary) hypertension; R73.9 Hyperglycemia, unspecified; R01.1 Cardiac murmur, unspecified | CPT/HCPCS: 96127; 99396 ==

== ENCOUNTER 2025-05-12 06:59 | Outpatient (REF) | payer OTHER, SELFPAY ==
--- OUTSIDE RECORDS SUMMARY | 2025-05-12 07:03 | XMS_ITS | Patient Health Record ---
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: Nonsmoker; Recovering alcoho lic x 20 years Problems Problem Type SNOMED Code ICD Code Onset Dates Problem Status W/U Status Risk Notes Problem Screening for malignant neoplasm of colon (367268740) Encounter for screening for malignant neoplasm of colon (Z12.11) Active confirmed Problem Screening for malignant neoplasm of rectum (466385954) Encounter for screening for malignant neoplasm of rectum (Z12.12) Active confirmed Problem Preprocedural examination ([id number]) Preprocedural examination (Z01.818) Active confirmed Plan Of Treatment Future Test Test Name Order Date COLONOSCOPY 08/21/2015 Next Appt Details Provider Name:Rosalio Nicolas Sosa , 08/16/2025 02:00:00 PM, [address], [address], [place], [address], Insurance Providers Payer Name Payer Address Payer Phone Subscriber Number Group Number Insured Name Patient Relationship to Insured Coverage Start Date Coverage End Date [facility] [address] [address] [place] [address] TRAVIS MEADE Self - patient is the insured Medical (General) History Medical History History ICD Code Hypertension Denies LA,DM,CVA,Lung disease,renal dise ase Heart murmur Neg. colonoscopy in 2005 at [facility]--done fo r eval. of diarrhea Surgical History Surgery Date(Month/Year) hand surgeries left [phone] left knee 2012 left hand septic 2002
--- OUTSIDE RECORDS SUMMARY | 2025-05-12 07:03 | XMS_ITS | Clinical Summary ---
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 Name Role Phone Jose Wills MD Primary Care Provider [phone] Allergies No known active allergies Medications AmLODIPine Besylate (NORVASC) 10 MG Tab 1 TABLET DAILY Active Aspirin 81 MG Tab 1 TABLET DAILY Active Ibuprofen 800 MG Tab 1 TABLET 3 TIMES DAILY Active Active Problems No known active problems Social History Tobacco Use Types Packs/Day Years Used Date Smoking Tobacco: Never Alcohol Use Standard Drinks/Week Comments Not Asked 0 (1 standard drink = 0.6 oz pur e alcohol) Sex and Gender Information Value Date Recorded Sex Assigned at Not on file Legal Sex Male 3:51 PM EDT Gender Identity Not on file Sexual Orientation Not on file Plan of Treatment Health Maintenance Due Date Last Done Comments Hepatitis C Screening 1960 MMR (Born 1955-) 1960 DTaP/Tdap/Td (1 - Tdap) 1979 Pneumococcal 50+ years (1 of 1 - PCV) 2011 Zoster (Shingrix) (1 of 2) 2011 COVID-19 Vaccine ( - 2024-2 6 season) 2025 Influenza (#1) 2025 RSV (1 - 1-dose 75+ series) 2036 HPV Vaccine (No Doses Required) Completed Hep A Aged Out No longer eligi ble based on patient's age to complete this topic Hep B Aged Out No longer eligi ble based on patient's age to complete this topic Hib Aged Out No longer eligi ble based on patient's age to complete this topic Meningococcal ACWY Aged Out No longer eligible based on patient's age to complete this topic Zoster (Zostavax) Discontinued Insurance MEDICAID Care Teams Florist Manager Relationship Specialty Start Date End Date Jose Wills MD [address] [place] [address] PCP - General Internal Medicine 12/17/11
[2025-05-12 07:18] LABS: MANUAL DIFF FLAG NO
[2025-05-12 08:09] LABS: Hematocrit 48.9 % (42.0-52.0); Hemoglobin 16.5 g/dl (14.0-18.0); Imm Gran Abs Auto 0.02 X10*3/uL (0.00-0.03); Imm Gran Pct Auto 0.3 % (0.0-0.4); Lymphocytes Absolute Auto 2.5 X10*3/uL (1.2-4.9); Mean Corpuscular HGB Conc 33.7 g/dl (31.0-36.0); Mean Corpuscular Hemoglobin 29.1 pg (27.0-33.0); Mean Corpuscular Volume 86.2 fL (80.0-98.0); NRBC Abs Auto 0.000 X10*3/uL (0.0-0.012); NRBC Pct Auto 0.0 /100WBC (0.0-0.2); Platelet Count 305 X10*3/uL (160-400); Red Blood Count 5.67 X10*6/uL (4.60-5.80); White Blood Count 6.5 X10*3/uL (4.8-10.8)
[2025-05-12 08:14] LABS: Appearance Urine Clear; Glucose Urine UA Negative (Negative); PH 7.5 (5.0-9.0); Specific Gravity - Urine 1.015 (1.005-1.025)
[2025-05-12 08:33] LABS: Alanine Aminotransferase 41 U/L (0-40); Albumin Level 4.5 g/dL (3.5-5.0); Alkaline Phosphatase 75 U/L (39-117); Anion Gap 10 (12-20); Blood Urea Nitrogen 10 mg/dL (9-16); Calcium 9.5 mg/dL (8.4-10.2); Carbon Dioxide 27 mmol/L (22-29); Chloride 104 mmol/L (96-108); Cholesterol 180 mg/dL (<200); Estimated Glomerular Filt Rate > 60; HDL Cholesterol 54 mg/dL (>40); Potassium 4.3 mmol/L (3.3-5.1); Sodium 137 mmol/L (135-145); Total Protein 7.0 g/dL (6.5-8.0); Triglycerides 66 mg/dL (<150)
[2025-05-12 08:55] LABS: PSA,Total (Free>4and<10) 0.61 ng/mL (0.00-4.00)
[2025-05-12 09:06] LABS: Aspartate Amino Transferase 34 U/L (5-37)
== END 2025-05-12 07:00 | disposition home or self-care (01) ==
LOC: HO.LAB 06:59
PROVIDERS: PCP Internal Medicine; Visit Provider Internal Medicine
DX: Z00.00 Encounter for general adult medical examination without abnormal findings (principal); I10 Essential (primary) hypertension; R73.9 Hyperglycemia, unspecified
CPT/HCPCS: 36415; 80053; 80061; 81001; 82043; 82570; 83036; 84153; 85025